=== PATIENT | female | born 1975 | race African-American/Black ===

== ENCOUNTER 2018-09-11 23:30 | Emergency (ER) | payer OTHER ==
[~2018-09-11] VITALS: Ht 167.6 cm; Wt 104.3 kg
[~2018-09-11 23:30] MED LIST: BENZ0.5T32 PO; FESO4TAB PO; LEVO50TA5 PO; LOXA10CA PO; METF500T25 PO; METO5SOL2 PO; OMEP40CA5 PO; RANI150T2 PO; TRAZ-86 PO
[2018-09-12 00:38] LABS: U PREG PATIENT NEGATIVE (NEG)
[2018-09-12 00:54] LABS: BASO # 0.1 x10^3/uL (0.0-0.2); BASO % 1 % (0-3); EOS # 0.2 x10^3/uL (0.0-0.7); EOS % 2 % (0-3); HEMATOCRIT 35.2 % (36.0-47.0); HEMOGLOBIN 11.6 g/dL (12.0-15.5); LYMPH # 3.2 x10^3/uL (1.0-4.8); LYMPH % 30 % (24-48); MEAN CORPUSCULAR HEMOGLOBIN 27 pg (25-35); MEAN CORPUSCULAR HGB CONC 33 g/dL (31-37); MEAN CORPUSCULAR VOLUME 83 fL (79-100); MONO # 0.5 x10^3/uL (0.0-1.1); MONO % 5 % (0-9); NEUT # 6.7 x10^3uL (1.8-7.7); NEUT % 63 % (31-73); PLATELET COUNT 286 x10^3/uL (140-400); RED BLOOD COUNT 4.22 x10^6/uL (3.50-5.40); RED CELL DISTRIBUTION WIDTH 15.4 % (11.5-14.5); WHITE BLOOD COUNT 10.7 x10^3/uL (4.0-11.0)
[2018-09-12] MEDS ORDERED: levETIRAcetam 500 MG TABLET PO ONE (01:00)
[2018-09-12 01:02] LABS: CALCIUM 9.1 mg/dL (8.5-10.1); CREATININE 1.2 mg/dL (0.6-1.0); GFR 59.3; POTASSIUM 3.9 mmol/L (3.5-5.1)
[2018-09-12 01:07] LABS: ALBUMIN 3.2 g/dL (3.4-5.0); ALBUMIN/GLOBULIN RATIO 0.7 (1.0-1.7); TOTAL BILIRUBIN 0.2 mg/dL (0.2-1.0); TOTAL PROTEIN 7.7 g/dL (6.4-8.2)
[2018-09-12 01:22] LABS: BILIRUBIN,URINE NEGATIVE (NEG); CLARITY,URINE CLEAR; COLOR,URINE YELLOW; NITRITE,URINE NEGATIVE (NEG); PROTEIN,URINE NEGATIVE (NEG-TRACE); UROBILINOGEN,URINE 0.2 mg/dL (0.2 mg/dL)
[2018-09-12 01:31] LABS: BACTERIA,URINE FEW /HPF (0-FEW); RBC,URINE OCC /HPF (0-2); SQUAMOUS EPITHELIAL CELL,UR MOD /LPF
[2018-09-12] MEDS ORDERED: LEVE500T56 PO (01:59)
--- NOTE | 2018-09-12 01:59 | PHYS DOC ---
Past Medical History Past Medical History: Unknown Additional Past Medical Histor: mental retardation, borderline personality disorder Past Surgical History: No Surgical History Alcohol Use: None Drug Use: None Adult General Chief Complaint Chief Complaint: SEIZURE HPI HPI Patient is a 43 year old female who presents with seizure activity today. Patient has a history of mental retardation and is at a nursing home and was coming home from playing bingo when the national van truck driver noticed that she was shaking. They assume she was having a seizure. They assisted to the front door where one of the nursing home caregivers noted that her upper extremities specifically the lower arm was shaking a lot, not the total body and it lasts approximately 10 minutes. Patient had a lucid interval minute happening again so they called outside machinist supervisor bring her to the emergency department. Patient is now in no acute distress and in review of her records she does have a history in 2013 of having partial complex seizures and was on an anticonvulsant at that time. There is no record of what the anticonvulsant was and her current list of diagnosis does not include a history of partial complex seizures. Review of Systems Review of Systems Constitutional: Denies fever or chills [] Eyes: Denies change in visual acuity, redness, or eye pain [] HENT: Denies nasal congestion or sore throat [] Respiratory: Denies cough or shortness of breath [] Cardiovascular: No additional information not addressed in HPI [] GI: Denies abdominal pain, nausea, vomiting, bloody stools or diarrhea [] : Denies dysuria or hematuria [] Musculoskeletal: Denies back pain or joint pain [] Integument: Denies rash or skin lesions [] Neurologic: Denies headache, focal weakness or sensory changes [] Endocrine: Denies polyuria or polydipsia [] All other systems were reviewed and found to be within normal limits, except as documented in this note. Current Medications Current Medications Current Medications Medications (Trade) Dose Ordered Sig/Prateek Start Time Stop Time Status Last Admin Dose Admin Levetiracetam (Keppra) 500 mg 1X ONCE 09/12/18 01:00 09/12/18 01:01 DC 09/12/18 00:55 500 MG Allergies Allergies Allergies Coded Allergies Type Severity Reaction Last Updated Verified No Known Drug Allergies 03/16/14 No Physical Exam Physical Exam Constitutional: Well developed, well nourished, no acute distress, non-toxic appearance. [] HENT: Normocephalic, atraumatic, bilateral external ears normal, oropharynx moist, no oral exudates, nose normal. [] Eyes: PERRLA, EOMI, conjunctiva normal, no discharge. [] Neck: Normal range of motion, no tenderness, supple, no stridor. [] Cardiovascular:Heart rate regular rhythm, no murmur [] Lungs & Thorax: Bilateral breath sounds clear to auscultation [] Abdomen: Bowel sounds normal, soft, no tenderness, no masses, no pulsatile masses. [] Skin: Warm, dry, no erythema, no rash. [] Back: No tenderness, no CVA tenderness. [] Extremities: No tenderness, no cyanosis, no clubbing, ROM intact, no edema. [] Neurologic: Alert and oriented X 3, normal motor function, normal sensory function, no focal deficits noted. [] Psychologic: Affect normal, judgement normal, mood normal. [] Current Patient Data Vital Signs Vital Signs Date Time Temp Pulse Resp B/P (MAP) Pulse Ox O2 Delivery O2 Flow Rate FiO2 09/11/18 23:47 98.6 90 20 154/94 (114) 98 Room Air 98.6 Lab Values Laboratory Tests Test 09/12/18 00:01 09/12/18 00:40 Urine Collection Type Unknown Urine Color Yellow Urine Clarity Clear Urine pH 6.0 Urine Specific [place] 1.015 Urine Protein Negative mg/dL (NEG-TRACE) Urine Glucose (UA) 100 mg/dL (NEG) Urine Ketones (Stick) Negative mg/dL (NEG) Urine Blood Negative (NEG) Urine Nitrite Negative (NEG) Urine Bilirubin Negative (NEG) Urine Urobilinogen Dipstick 0.2 mg/dL (0.2 mg/dL) Urine Leukocyte Esterase Trace (NEG) Urine RBC Occ /HPF (0-2) Urine WBC 5-10 /HPF (0-4) Urine Squamous Epithelial Cells Mod /LPF Urine Bacteria Few /HPF (0-FEW) Urine Mucus Slight /LPF Urine Test Negative (NEG) White Blood Count 10.7 x10^3/uL (4.0-11.0) Red Blood Count 4.22 x10^6/uL (3.50-5.40) Hemoglobin 11.6 g/dL (12.0-15.5) L Hematocrit 35.2 % (36.0-47.0) L Mean Corpuscular Volume 83 fL (79-100) Mean Corpuscular Hemoglobin 27 pg (25-35) Mean Corpuscular Hemoglobin Concent 33 g/dL (31-37) Red Cell Distribution Width 15.4 % (11.5-14.5) H Platelet Count 286 x10^3/uL (140-400) Neutrophils (%) (Auto) 63 % (31-73) Lymphocytes (%) (Auto) 30 % (24-48) Monocytes (%) (Auto) 5 % (0-9) Eosinophils (%) (Auto) 2 % (0-3) Basophils (%) (Auto) 1 % (0-3) Neutrophils # (Auto) 6.7 x10^3uL (1.8-7.7) Lymphocytes # (Auto) 3.2 x10^3/uL (1.0-4.8) Monocytes # (Auto) 0.5 x10^3/uL (0.0-1.1) Eosinophils # (Auto) 0.2 x10^3/uL (0.0-0.7) Basophils # (Auto) 0.1 x10^3/uL (0.0-0.2) Sodium Level 138 mmol/L (136-145) Potassium Level 3.9 mmol/L (3.5-5.1) Chloride Level 103 mmol/L (98-107) Carbon Dioxide Level 21 mmol/L (21-32) Anion Gap 14 (6-14) Blood Urea Nitrogen 14 mg/dL (7-20) Creatinine 1.2 mg/dL (0.6-1.0) H Estimated GFR (Cockcroft-Gault) 59.3 BUN/Creatinine Ratio 12 (6-20) Glucose Level 215 mg/dL (70-99) H Calcium Level 9.1 mg/dL (8.5-10.1) Total Bilirubin 0.2 mg/dL (0.2-1.0) Aspartate Amino Transferase (AST) 11 U/L (15-37) L Alanine Aminotransferase (ALT) 18 U/L (14-59) Alkaline Phosphatase 81 U/L (46-116) Total Protein 7.7 g/dL (6.4-8.2) Albumin 3.2 g/dL (3.4-5.0) L Albumin/Globulin Ratio 0.7 (1.0-1.7) L Laboratory Tests 09/12/18 00:40 Laboratory Tests 09/12/18 00:40 EKG EKG [] Radiology/Procedures Radiology/Procedures [] Course & Med Decision Making Course & Med Decision Making Pertinent Labs and Imaging studies reviewed. (See chart for details) Discussed with Dr. Isabel, neurology who recommended starting the patient on Keppra 500 mg by mouth T with neurological follow-up. [] Dragon Disclaimer Dragon Disclaimer This electronic medical record was generated, in whole or in part, using a voice recognition dictation system. Departure Departure Impression: Primary Impression: Complex partial seizure Disposition: HOME, SELF-CARE Condition: STABLE Referrals: REVA ENGLISH (PCP) SAM ISABEL MD Patient Instructions: Seizure, Adult Scripts Levetiracetam (KEPPRA) 500 Mg Tablet 500 MG PO BID for 30 Days, #60 TAB Prov: YUSRA ACEVEDO MD 09/12/18 YUSRA ACEVEDO MD Sep 12, 2018 01:59
[2018-09-12 02:16] VITALS: BP 130/84
== END 2018-09-12 02:17 | disposition home or self-care (01) ==
LOC: ER 23:30
DX: G40.209 Localization-related (focal) (partial) symptomatic epilepsy and epileptic syndromes with complex partial seizures, not intractable, without status epilepticus (principal)
CPT/HCPCS: 36415; 80053; 81001; 81025; 85025; 87086; 99284

== ENCOUNTER → 2019-06-24 | Outpatient (CLI) | payer OTHER ==
[~2019-06-24] MED LIST changes: +LEVE500T56 PO; +LISI-338 PO; +LORA10TA3 PO; +SITA100T PO
--- NOTE | 2019-06-25 14:36 | EEG ---
DATE OF SERVICE: ELECTROENCEPHALOGRAM REPORT EEG NUMBER [id number] performed on 06/24/2019. OBJECTIVE: The patient is a 44-year-old female with a history of seizures. DESCRIPTION: This is a digital study. Electrodes are placed according to international 10-20 system. Bipolar and referential montages are available. Activation procedures typically include hyperventilation and intermittent photic stimulation. INTERPRETATION: The waking background consists of 8-9 Hz, 50-100 microvolt activity, symmetrically distributed over parietooccipital regions and reactive to eye opening. Hyperventilation and intermittent photic stimulation are noncontributory. Stage 2 sleep was achieved with normal electroencephalogram patterns. IMPRESSION: This electroencephalogram with the patient awake and asleep is within normal limits. There is no focal, paroxysmal, or epileptiform activity. Thank you for letting us help with the patient's care. SAM ISABEL MD DR: CHRIS/kanchan JOB#: [id number] / [id number] ALDA Grossman MD
== END | disposition home or self-care (01) ==
LOC: RT 13:42
PROVIDERS: ATTEND Psychiatry & Neurology Neurology
DX: R56.9 Unspecified convulsions (principal); Z86.73 Personal history of transient ischemic attack (TIA), and cerebral infarction without residual deficits
CPT/HCPCS: 36415; 95816

== ENCOUNTER → 2019-07-11 | Outpatient (CLI) | payer OTHER ==
[~2019-07-11] MED LIST changes: +GADOTERATE 5 MMOL/10ML VIAL. IVP ONE
--- NOTE | 2019-07-11 14:53 | KCIC ---
MRI of the Brain without and with Contrast 07/11/2019 Clinical History: Seizures. Right hemiparesis. Technique: Unenhanced T1-weighted sagittal and axial and FLAIR, T2-weighted, gradient echo and diffusion-weighted axial images of the brain were obtained. Thin section FLAIR and T2-weighted coronal images through the temporal lobes were obtained. After the intravenous administration of 18 cc of Dotarem, enhanced T1-weighted axial and coronal images of the brain were obtained. Findings: No previous studies are available for comparison. Atrophy is seen involving both cerebral hemispheres, left greater than right. Areas of encephalomalacia are seen involving both parietal lobes, left greater than right and the left frontal and temporal lobes. Ex vacuo dilatation of the occipital horn of the left lateral ventricle is seen. A 1.8 cm arachnoid cyst is seen anterior to the left temporal lobe. There is no significant mass effect. No acute parenchymal abnormality is noted. No acute extra-axial fluid collection is seen. There is no MRI evidence of acute ischemia/infarction. No area of abnormal contrast enhancement is noted. Images through the temporal lobes are within normal limits. Mild mucosal thickening in seen scattered throughout the paranasal sinuses. There are minimal bilateral mastoid effusions. Normal flow voids are seen within the major vascular structures surrounding the right parenchyma. IMPRESSION: Areas of encephalomalacia are seen involving both parietal lobes, left greater than right and the frontal and temporal lobes. No acute parenchymal abnormality is seen. Electronically signed by: Velasquez Salinas MD (07/11/2019 2:50 PM) [id number]
== END | disposition home or self-care (01) ==
LOC: KCIC MRI 10:51
PROVIDERS: ATTEND Psychiatry & Neurology Neurology with Special Qualifications in Child Neurology
DX: G93.0 Cerebral cysts (principal); G31.89 Other specified degenerative diseases of nervous system; G93.89 Other specified disorders of brain; H74.8X3 Other specified disorders of middle ear and mastoid, bilateral; G81.91 Hemiplegia, unspecified affecting right dominant side; I10 Essential (primary) hypertension; E11.9 Type 2 diabetes mellitus without complications
CPT/HCPCS: 70553; 82565; A9575

== ENCOUNTER → 2020-11-12 | Outpatient (CLI) | payer OTHER ==
[~2020-11-12] MED LIST changes: -GADOTERATE 5 MMOL/10ML VIAL. IVP ONE; +OMEP40CA45 PO; -OMEP40CA5 PO; +TRAZ-123 PO; -TRAZ-86 PO
--- NOTE | 2020-11-12 14:32 | KCIC ---
XR HAND_LEFT 3 VIEWS 11/12/2020 1:18 PM INDICATION: Injury to the left fifth digit. COMPARISON: None available. TECHNIQUE: 4 views left hand are provided. FINDINGS/ IMPRESSION: 1. There is a comminuted fracture involving the base of the proximal phalanx of the fifth digit with intra-articular extension to the metacarpophalangeal joint. There is regional soft tissue swelling. B one mineralization is within normal limits. No subcutaneous gas or osseous erosion. Electronically signed by: Sirena Batres MD (11/12/2020 2:30 PM) [id number]
== END ==
LOC: KCIC 13:10
PROVIDERS: ATTEND Family Medicine
DX: S69.92XA Unspecified injury of left wrist, hand and finger(s), initial encounter (principal); M79.89 Other specified soft tissue disorders; X58.XXXA Exposure to other specified factors, initial encounter; Y93.89 Activity, other specified; Y92.89 Other specified places as the place of occurrence of the external cause; Y99.8 Other external cause status
CPT/HCPCS: 73130

== ENCOUNTER → 2021-03-11 | Outpatient (CLI) | payer OTHER ==
[~2021-03-11] MED LIST changes: -LISI-338 PO; +LISI-517 PO
--- NOTE | 2021-03-11 14:47 | KCIC ---
Bilateral digital screening mammograms with 3-D tomosynthesis: Reason for examination: Routine screening. Baseline exam. Bilateral mammograms in CC and oblique projections were obtained with 2-D imaging and 3-D tomosynthes is imaging on a Siemens Inspiration unit and reviewed on the workstation. Interpretation was made jose j mcgregor the benefit of CAD. The skin and nipples show no abnormalities. No abnormal axillary lymph nodes are seen. The breast par enchyma shows scattered fatty and fibroglandular density. (Breast density: Category B.) There appears to be a small nodular density at approximately the 2:00 B position of the left breast. Recommend fur ther evaluation with ultrasound. There are no other dominant masses, suspicious calcifications or arc hitectural distortion. Impression: Small nodular density in the 2:00 B position of the left breast. Recommend further evaluation with tone hernandez. BI-RAD Category 0: Incomplete. Needs additional imaging evaluation. "Our facility is accredited by the [employer] Mammography Program." This patient's information has been entered into a reminder system for the patient to be notified wit h the results of her examination and a target date for the next mammogram. Electronically signed by: Stephanie Adan MD (03/11/2021 2:45 PM) [email or web address]
== END ==
LOC: KCIC MAMMO 12:18
PROVIDERS: ATTEND Family Medicine
DX: Z12.31 Encounter for screening mammogram for malignant neoplasm of breast (principal); N63.21 Unspecified lump in the left breast, upper outer quadrant
CPT/HCPCS: 77063; 77067

== ENCOUNTER → 2021-04-10 | Outpatient (CLI) | payer OTHER ==
--- NOTE | 2021-04-10 13:57 | KCIC ---
Left breast ultrasound: Reason for examination: Nodular density on screening mammogram. Comparison is made to mammographic exam dated 03/11/2021. Ultrasound examination of the left breast and axilla was performed. There is mild fibrocystic changes and ductal ectasia. No discrete cystic or solid nodules are seen. N o abnormal appearing lymph nodes are seen in the left axilla. IMPRESSION: No suspicious abnormality seen sonographically. Recommend 6 month follow-up with left breast mammogra ms and ultrasound. BI-RADS Category 3: Probably Benign. "Our facility is accredited by the [employer] Mammography Program." This patient's information has been entered into a reminder system for the patient to be notified wit h the results of her examination and a target date for the next mammogram. Electronically signed by: Stephanie Adan MD (04/10/2021 1:55 PM) [email or web address]
== END ==
LOC: KCIC US 13:17
PROVIDERS: ATTEND Family Medicine
DX: R92.8 Other abnormal and inconclusive findings on diagnostic imaging of breast (principal)
CPT/HCPCS: 76641

== ENCOUNTER → 2021-04-17 | Outpatient (CLI) | payer OTHER ==
--- NOTE | 2021-04-17 16:30 | CARD ---
MR#: [id number] Date of Study: 04/17/2021 Ordering Physician: SINDHU CHAMBERS, Referring Physician: Jose BARNES: Tequila Hernandez [facility] APPROVED REPORT EXAM: Two-dimensional and M-mode echocardiogram with Doppler and color Doppler. Other Information Quality : GoodHR: 77bpm Rhythm : NSR INDICATION Diabetic, Tachycardia 2D DIMENSIONS RVDd2.1 (2.9-3.5cm)Left Atrium(2D)2.7 (1.6-4.0cm) IVSd0.7 (0.7-1.1cm)Aortic Root(2D)2.7 (2.0-3.7cm) LVDd3.8 (3.9-5.9cm)LVOT Diameter1.8 (1.8-2.4cm) PWd0.8 (0.7-1.1cm)LVDs2.8 (2.5-4.0cm) FS (%) 27.4 %SV33.2 ml LVEF(%)54.0 (>50%) Aortic Valve AoV Peak Canelo.153.9cm/Lance Peak GR.9.5mmHg LVOT Peak Canelo.87.3cm/sAVA (VMAX)1.45cm2 Mitral Valve MV E Ngpgmnye24.4cm/sMV DECEL [id number] MV A Tmflybmh03.3cm/sE/A Ratio1.1 Pulmonary Valve PV Peak Bzcgmrgs46.7cm/s Tricuspid Valve TR P. Hhqyrffe862vq/sRAP PXBZGNKD4baXl TR Peak Gr.3bbLsHJRR23tnNm Pulmonary Vein S1 Huheekka30.7cm/sD2 Oidaufdp89.5cm/s PVa jugpozhx73tpto LEFT VENTRICLE The left ventricle is normal size. There is normal left ventricular wall thickness. The left ventricu lar systolic function is normal. The ejection fraction is 55%. There is normal LV segmental wall sabine on. The left ventricular diastolic function is normal. No left ventricle thrombus noted on this study . There is no ventricular septal defect visualized. There is no left ventricular aneurysm. There is n o mass noted in the left ventricle. RIGHT VENTRICLE The right ventricle is normal size. There is normal right ventricular wall thickness. The right ventr icular systolic function is normal. ATRIA The left atrium size is normal. The right atrium size is normal. The interatrial septum is intact wit h no evidence for an atrial septal defect or patent foramen ovale as noted on 2-D or Doppler imaging. AORTIC VALVE The aortic valve is normal in structure and function. No aortic regurgitation is present. There is no aortic valvular stenosis. There is no aortic valvular vegetation. MITRAL VALVE The mitral valve is normal in structure and function. There is no mitral valve stenosis. Doppler and Color Flow revealed no mitral valve regurgitation noted. TRICUSPID VALVE The tricuspid valve is normal in structure and function. Doppler and Color Flow revealed trace tricus pid regurgitation. PAP 18 mmHg. There is no tricuspid valve stenosis. GREAT VESSELS The aortic root is normal in size. The ascending aorta is normal in size. The pulmonary artery is nor mal. The IVC is normal in size and collapses >50% with inspiration. PERICARDIAL EFFUSION There is no pleural effusion. There is no evidence of significant pericardial effusion. Critical Notification Critical Value: No <Conclusion> The left ventricular systolic function is normal. The ejection fraction is 55%. There is normal LV segmental wall motion. Trace tricuspid regurgitation. PAP 18 mmHg. There is no evidence of significant pericardial effusion. Signed by : Sindhu Chambers, Electronically Approved : 04/17/2021 16:29:45
== END ==
LOC: ECHO 07:45
PROVIDERS: ATTEND Internal Medicine Cardiovascular Disease
DX: R00.0 Tachycardia, unspecified (principal)
CPT/HCPCS: 93306

== ENCOUNTER → 2021-04-30 | Outpatient (CLI) | payer OTHER ==
--- NOTE | 2021-04-30 11:13 | RAD ---
US DPLX ARTR EXTREM LOWER BILAT 04/30/2021 9:27 AM INDICATION: Peripheral arterial disease COMPARISON: None available. TECHNIQUE: Multiple sonographic images of the right lateral lower extremity arterial system was perf ormed utilizing grayscale, color Doppler and spectral waveform analysis. FINDINGS: Triphasic waveforms identified throughout the bilateral lower extremities. Right lower extremity: Common femoral artery: 131 cm/s Profunda artery: 61 cm/s Superficial femoral artery, proximal: 93 cm/s Superficial femoral artery, mid: 83 cm/s Superficial femoral artery, distal: 99 cm/s Popliteal artery: 44 cm/s Posterior tibial artery: 43-46 cm/s Anterior tibial artery: 57 cm/s Peroneal artery: 35 cm/s Dorsalis pedis artery: 48 cm/s Left lower extremity: Common femoral artery: 111 cm/s Profunda artery: 73 cm/s Superficial femoral artery, proximal: 85 cm/s Superficial femoral artery, mid: 78 cm/s Superficial femoral artery, distal: 68 cm/s Popliteal artery: 63 cm/s Posterior tibial artery: 39-51 cm/s Anterior tibial artery: 50 cm/s Peroneal artery: 34 cm/s Dorsalis pedis artery: 34 cm/s IMPRESSION: No hemodynamically significant stenosis involving the bilateral lower extremity arterial system. Electronically signed by: Sirena Batres MD (04/30/2021 11:11 AM) [id number]
== END ==
LOC: US 10:16
PROVIDERS: ATTEND Internal Medicine Cardiovascular Disease
DX: I73.9 Peripheral vascular disease, unspecified (principal)
CPT/HCPCS: 93925

== ENCOUNTER 2021-07-30 08:44 | Inpatient (IN) | payer OTHER ==
[~2021-07-30] VITALS: Ht 165.1 cm; Wt 90.9 kg
[~2021-07-30 08:44] MED LIST changes: -OMEP40CA45 PO; +OMEP40CA7 PO
[2021-07-30] MEDS ORDERED: methylPREDNISolone SOD SUCC PF 125 MG/2 ML VIAL. IV ONE (09:30)
--- NOTE | 2021-07-30 09:33 | ED.ADGEN ---
Past Medical History Past Medical History: Seizure, Unknown Additional Past Medical Histor: mental retardation, borderline personality disorder Past Surgical History: No Surgical History Smoking Status: Never Smoker Alcohol Use: None Drug Use: None General Adult EDM: Chief Complaint: SEIZURE HPI: HPI: Patient is a 46-year-old female who arrives via EMS after having a witnessed seizure lasting approximately 2 minutes. Patient resides in a residential and has a known seizure disorder. Patient was unresponsive during the time the seizure occurred and upon window installation subcontractor arrival the seizure had resolved. Of note, the patient has been coughing and short of air during this time as well. Several residents of the patient's residence are being treated for Covid. Patient reports she has a sore throat when she coughs and had saturations in the mid 80s upon arrival. She provides no history otherwise. She is awake, alert and resting comfortably at this time. Review of Systems: Review of Systems: Constitutional: Denies fever or chills. [] Eyes: Denies change in visual acuity. [] HENT: Reports sore throat with cough. [] Respiratory: Reports shortness of air with cough. [] Cardiovascular: Denies chest pain or edema. [] GI: Denies abdominal pain, nausea, vomiting, bloody stools or diarrhea. [] : Denies dysuria. [] Musculoskeletal: Denies back pain or joint pain. [] Integument: Denies rash. [] Neurologic: Reports seizure. Denies headache, focal weakness or sensory changes. [] Endocrine: Denies polyuria or polydipsia. [] Lymphatic: Denies swollen glands. [] Psychiatric: Denies depression or anxiety. [] Current Medications: Current Medications Medications (Trade) Dose Ordered Sig/Prateek Start Time Stop Time Status Last Admin Dose Admin Methylprednisolone Sodium Succinate (SOLU-Medrol 125MG VIAL) 125 mg 1X ONCE 07/30/21 09:30 07/30/21 09:33 DC 07/30/21 10:20 125 MG Allergies: Allergies: Allergies Coded Allergies Type Severity Reaction Last Updated Verified No Known Drug Allergies 07/30/21 No Physical Exam: PE: Constitutional: Well developed, well nourished, no acute distress, non-toxic appearance. [] HENT: Normocephalic, atraumatic, bilateral external ears normal, oropharynx moist, no oral exudates, nose normal. [] Eyes: PERRLA, EOMI, conjunctiva normal, no discharge. [] Neck: Normal range of motion, no tenderness, supple, no stridor. [] Cardiovascular:Heart rate regular rhythm, no murmur [] Lungs & Thorax: Diminished breath sounds bilaterally. [] Abdomen: Bowel sounds normal, soft, no tenderness, no masses, no pulsatile masses. [] Skin: Warm, dry, no erythema, no rash. [] Back: No tenderness, no CVA tenderness. [] Extremities: No tenderness, no cyanosis, no clubbing, ROM intact, no edema. [] Neurologic: Alert and oriented X 3, normal motor function, normal sensory function, no focal deficits noted. [] Psychologic: Affect normal, judgement normal, mood normal. [] Current Patient Data: Labs: Laboratory Tests Test 07/30/21 09:04 07/30/21 10:09 White Blood Count 7.1 x10^3/uL (4.0-11.0) Red Blood Count 4.28 x10^6/uL (3.50-5.40) Hemoglobin 11.7 g/dL (12.0-15.5) L Hematocrit 35.4 % (36.0-47.0) L Mean Corpuscular Volume 83 fL (79-100) Mean Corpuscular Hemoglobin 27 pg (25-35) Mean Corpuscular Hemoglobin Concent 33 g/dL (31-37) Red Cell Distribution Width 13.9 % (11.5-14.5) Platelet Count 206 x10^3/uL (140-400) Neutrophils (%) (Auto) 79 % (31-73) H Lymphocytes (%) (Auto) 15 % (24-48) L Monocytes (%) (Auto) 6 % (0-9) Eosinophils (%) (Auto) 0 % (0-3) Basophils (%) (Auto) 0 % (0-3) Neutrophils # (Auto) 5.6 x10^3/uL (1.8-7.7) Lymphocytes # (Auto) 1.1 x10^3/uL (1.0-4.8) Monocytes # (Auto) 0.4 x10^3/uL (0.0-1.1) Eosinophils # (Auto) 0.0 x10^3/uL (0.0-0.7) Basophils # (Auto) 0.0 x10^3/uL (0.0-0.2) Sodium Level 134 mmol/L (136-145) L Potassium Level 4.6 mmol/L (3.5-5.1) Chloride Level 100 mmol/L (98-107) Carbon Dioxide Level 22 mmol/L (21-32) Anion Gap 12 (6-14) Blood Urea Nitrogen 15 mg/dL (7-20) Creatinine 1.3 mg/dL (0.6-1.0) H Estimated GFR (Cockcroft-Gault) 53.4 BUN/Creatinine Ratio 12 (6-20) Glucose Level 190 mg/dL (70-99) H Calcium Level 8.4 mg/dL (8.5-10.1) L Total Bilirubin 0.2 mg/dL (0.2-1.0) Aspartate Amino Transferase (AST) 45 U/L (15-37) H Alanine Aminotransferase (ALT) 48 U/L (14-59) Alkaline Phosphatase 72 U/L (46-116) Troponin I Quantitative < 0.017 ng/mL (0.000-0.055) OL-Xpt-N-Type Natriuretic Peptide 60 pg/mL (0-124) Total Protein 7.1 g/dL (6.4-8.2) Albumin 2.9 g/dL (3.4-5.0) L Albumin/Globulin Ratio 0.7 (1.0-1.7) L POC Urine HCG, Qualitative Hcg negative (Negative) Laboratory Tests 07/30/21 09:04 Laboratory Tests 07/30/21 09:04 Vital Signs: Vital Signs Date Time Temp Pulse Resp B/P (MAP) Pulse Ox O2 Delivery O2 Flow Rate FiO2 07/30/21 09:14 99.1 98 22 121/69 (114) 96 Nasal Cannula 2.0 99.1 EKG: EKG: [] EKG was obtained at 10:21 AM and revealed a normal sinus rhythm with a ventricular rate of 99 bpm. There are no acute ST/T wave changes to denote ischemia. This is an otherwise normal EKG. Heart Score: C/O Chest Pain: No Risk Factors: Risk Factors: DM, Current or recent (<one month) smoker, HTN, HLP, family history of CAD, obesity. Risk Scores: Score 0 - 3: 2.5% MACE over next 6 weeks - Discharge Home Score 4 - 6: 20.3% MACE over next 6 weeks - Admit for Clinical Observation Score 7 - 10: 72.7% MACE over next 6 weeks - Early Invasive Strategies Radiology/Procedures: Radiology/Procedures: [] Impression: [facility] [address] [place] [address] IMAGING REPORT Signed PATIENT: IRISH FARRAR ACCOUNT: [id number] : 1975 LOCATION: ER AGE: 46 SEX: F EXAM STATUS: PRE ER ORD. PHYSICIAN: MARIELLE WHITE DO REASON: SOA/COUGH PROCEDURE: PORTABLE CHEST 1V AP chest. HISTORY: Short of air, cough AP view was taken of the chest. Lungs are clear. Heart is normal in size. There is no effusion. IMPRESSION: 1. No acute infiltrates. Electronically signed by: Gage Tran MD (07/30/2021 9:47 AM) [facility] DICTATED and SIGNED BY: GAGE TRAN MD DATE: 07/30/21 [id number] Course & Med Decision Making: Course & Med Decision Making Pertinent Labs and Imaging studies reviewed. (See chart for details) [] Dragon Disclaimer: Pedro Disclaimer: This electronic medical record was generated, in whole or in part, using a voice recognition dictation system. Departure Departure Impression: Primary Impression: Person under investigation for COVID-19 Additional Impressions: Seizure Hypoxia Disposition: ADMITTED INPATIENT Admitting Physician: ANUJA Condition: STABLE Referrals: ALDA TAVAREZ MD (PCP) Problem Qualifiers MARIELLE WHITE DO Jul 30, 2021 09:33
[2021-07-30 09:41] LABS: BASO % 0 % (0-3); EOS % 0 % (0-3); HEMATOCRIT 35.4 % (36.0-47.0); HEMOGLOBIN 11.7 g/dL (12.0-15.5); LYMPH # 1.1 x10^3/uL (1.0-4.8); LYMPH % 15 % (24-48); MEAN CORPUSCULAR HEMOGLOBIN 27 pg (25-35); MEAN CORPUSCULAR HGB CONC 33 g/dL (31-37); MEAN CORPUSCULAR VOLUME 83 fL (79-100); MONO # 0.4 x10^3/uL (0.0-1.1); MONO % 6 % (0-9); NEUT # 5.6 x10^3/uL (1.8-7.7); NEUT % 79 % (31-73); PLATELET COUNT 206 x10^3/uL (140-400); RED BLOOD COUNT 4.28 x10^6/uL (3.50-5.40); RED CELL DISTRIBUTION WIDTH 13.9 % (11.5-14.5); WHITE BLOOD COUNT 7.1 x10^3/uL (4.0-11.0)
[2021-07-30 09:50] LABS: CALCIUM 8.4 mg/dL (8.5-10.1); CREATININE 1.3 mg/dL (0.6-1.0); GFR 53.4; POTASSIUM 4.6 mmol/L (3.5-5.1)
--- NOTE | 2021-07-30 09:50 | RAD ---
AP chest. HISTORY: Short of air, cough AP view was taken of the chest. Lungs are clear. Heart is normal in size. There is no effusion. IMPRESSION: 1. No acute infiltrates. Electronically signed by: Gage Tran MD (07/30/2021 9:47 AM) [facility]
[2021-07-30 09:56] LABS: ALBUMIN 2.9 g/dL (3.4-5.0); ALBUMIN/GLOBULIN RATIO 0.7 (1.0-1.7); TOTAL BILIRUBIN 0.2 mg/dL (0.2-1.0); TOTAL PROTEIN 7.1 g/dL (6.4-8.2)
[2021-07-30] MEDS ORDERED: ONDANSETRON PF 4 MG/2 ML VIAL. IVP PRN ×2 (10:45→17:00)
[2021-07-30] MEDS ORDERED: ACETAMINOPHEN 325 MG TABLET. PO PRN ×2 (10:45→17:00)
--- NOTE | 2021-07-30 10:46 | EKG ---
[facility] [address] [place] [address] Test Date: 2021-07-30 Test Time: 10:21:56 Pat Name: IRISH FARRAR Department: Room: Gender: F Supervisor [employer]: : 1975 Requested By: MARIELLE WHITE Order Number: [id number] Reading MD: Measurements Intervals [place] Rate: 99 P: 30 NE: 142 QRS: 24 QRSD: 80 T: 21 QT: 346 QTc: 444 Interpretive Statements SINUS RHYTHM NORMAL ECG RI6.02 No previous ECG available for comparison
--- NOTE | 2021-07-30 12:08 | PDOC1 ---
History and Physical Date of Admission Date of Admission DATE: 07/30/21 TIME: 12:06 Identification/Chief Complaint Chief Complaint Seizure, hypoxia Source Source: Caregiver, Chart review, Patient History of Present Illness History of Present Illness Ms Mena is a 46-year-old female w/ PMHX developmental mental delay, MRDD, seizure disorder, psychosis who arrives via EMS after having a witnessed seizure lasting approximately 2 minutes at her senior living. Patient resides in a senior living and has a known seizure disorder. Patient was unresponsive during the time the seizure occurred and upon manager building arrival the seizure had resolved. Of note, the patient has been coughing and short of air during this time as well. Several residents of the patient's residence are being treated for Covid. Patient reports she has a sore throat when she coughs and had saturations in the mid 80s upon arrival. She notes that she has been having diarrhea for at least 6 days as well after a roommate coughed on her. Not vaccinated for COVID 19. WBC 7.1, Hb 11.7, platelets 206, NA 134, K4.6, BUN 15, CR 1.3, glucose 190, bilirubin 0.2, AST 45, ALT 48, alk phos 72, troponin 0, BNP 60, albumin 2.9. Rapid nucleic amplification test positive for COVID-19. Urine negative. Admitted for further care. Past Medical History Cardiovascular: HTN CENTRAL NERVOUS SYSTEM: Seizure Past Surgical History Past Surgical History: No pertinent history Family History Family History: Hypertension Social History Smoke: No ALCOHOL: none Drugs: None Current Problem List Problem List Problems Medical Problems: (1) Hypoxia Status: Acute (2) Person under investigation for COVID-19 Status: Acute (3) Seizure Status: Acute Current Medications Current Medications Current Medications Methylprednisolone Sodium Succinate (SOLU-Medrol 125MG VIAL) 125 mg 1X ONCE IV Last administered on 07/30/21at 10:20; Start 07/30/21 at 09:30; Stop 07/30/21 at 09:33; Status DC Ondansetron HCl (Zofran) 4 mg PRN Q8HRS PRN IVP NAUSEA/VOMITING; Start 07/30/21 at 10:45; Stop 07/31/21 at 10:44 Acetaminophen (Tylenol) 650 mg PRN Q4HRS PRN PO FEVER > 100.3'F; Start 07/30/21 at 10:45; Stop 07/31/21 at 10:44 Active Scripts Active Keppra (Levetiracetam) 500 Mg Tablet 500 Mg PO BID 30 Days Reported Loratadine 10 Mg Tablet 10 Mg PO Januvia (Sitagliptin Phosphate) 100 Mg Tablet 100 Mg PO DAILY Lisinopril 5 Mg Tablet 5 Mg PO DAILY Trazodone Hcl 100 Mg Tablet 100 Mg PO HS Toviaz (Fesoterodine Fumarate) 4 Mg Tab.er.24h 4 Mg PO DAILY Ranitidine Hcl 150 Mg Tablet 150 Mg PO DAILY Omeprazole 40 Mg Capsule.dr 40 Mg PO DAILY Metoclopramide Hcl 5 Mg/5 Ml Solution 5 Mg PO TID Metformin Hcl Er (Metformin Hcl) 500 Mg Tab.er.24 500 Mg PO DAILYBFRSUP Loxapine (Loxapine Succinate) 10 Mg Capsule 10 Mg PO BID Levothyroxine Sodium 50 Mcg Tablet 50 Mcg PO DAILY Benztropine Mesylate 0.5 Mg Tablet 0.5 Mg PO BID Allergies Allergies: Coded Allergies: No Known Drug Allergies (Unverified , 07/30/21) ROS General: YES: Fatigue, Malaise, Appetite; No: Chills, Night Sweats, Other PSYCHOLOGICAL ROS: YES: Anxiety, Behavioral Disorder, Concentration difficultie , Mood Swings, Obsessive thoughts; No: Decreased libido, Depression, Disorientation, Hallucinations, Hostility, Irritablity, Memory difficulties, Physical abuse, Sexual abuse, Sleep disturbances, Suicidal ideation, Other Eyes: No Blurry vision, No Decreased vision, No Double vision, No Dry eyes, No Excessive tearing, No Eye Pain, No Itchy Eyes, No Loss of vision, No Photophobia, No Scotomata, No Uses contacts, No Uses glasses, No Other HEENT: No: Heacaches, Visual Changes, Hearing change, Nasal congestion, Nasal discharge, Oral lesions, Sinus pain, Sore Throat, Epistaxis, Sneezing, Snoring, Tinnitus, Vertigo, Vocal changes, Other ALLERGY AND IMMUNOLOGY: No: Hives, Insect Bite Sensitivity, Itchy/Watery Eyes, Nasal Congestion, Post Nasal Drip, Seasonal Allergies, Other Hematological and Lymphatic: No: Bleeding Problems, Blood Clots, Blood Transfusions, Brusing, Night Sweats, Pallor, Swollen Lymph Nodes, Other ENDOCRINE: No: Breast Changes, Galactorrhea, Hair Pattern Changes, Hot Flashes, Malaise/lethargy, Mood Swings, Palpitations, Polydipsia/polyuria, Skin Changes, Temperature Intolerance, Unexpected Weight Changes, Other Breast: No New/Changing Breast Lumps, No Nipple changes, No Nipple discharge, N o Other Respiratory: YES: Cough, Shortness of breath, SOB with excertion; No: Hemoptysis, Orthopnea, Pleuritic Pain, Sputum Changes, Stridor, Tachypnea, Wheezing, Other Cardiovascular: No Chest Pain, No Palpitations, No Orthopnea, No Paroxysmal Noc. Dyspnea, No Edema, No Lt Headedness, No Other Gastrointestinal: Yes Diarrhea; No Nausea, No Vomiting, No Abdominal Pain, No Constipation, No Melena, No Hematochezia, No Other Genitourinary: No Dysuria, No Frequency, No Incontinence, No Hematuria, No Retention, No Discharge, No Urgency, No Pain, No Flank Pain, No Other, No , No , No , No , No , No , No Musculoskeletal: No Gait Disturbance, No Joint Pain, No Joint Stiffness, No Joint Swelling, No Muscle Pain, No Muscular Weakness, No Pain In:, No Swelling In:, No Other Neurological: Yes Seizures; No Behavorial Changes, No Bowel/Bladder ControlChng, No Confusion, No Dizziness, No Gait Disturbance, No Headaches, No Impaired Coord/balance, No Memory Loss, No Numbness/Tingling, No Speech Problems, No Tremors, No Visual Changes, No Weakness, No Other Skin: No Dry Skin, No Eczema, No Hair Changes, No Lumps, No Mole Changes, No Mottling, No Nail Changes, No Pruritus, No Rash, No Skin Lesion Changes, No Other, No Acne Physical Exam General: Alert, Oriented X3, Cooperative, mild distress HEENT: Atraumatic, PERRLA, EOMI, Mucous membr. moist/pink Lungs: Other (Bibasilar crackles) Heart: S1S2, RRR, no thrills, no rubs, no gallops, no murmurs Abdomen: Normal bowel sounds, Soft, No tenderness, No hepatosplenomegaly, No masses Rectal Exam: not examined Extremities: No clubbing, No cyanosis, No edema, Normal pulses, No tenderness/swelling Skin: No rashes, No breakdown, No significant lesion Neuro: Normal gait, Normal speech, Strength at 5/5 X4 ext, Sensation intact, Cranial nerves 3-12 NL, Reflexes 2+, Other (increased tone) Psych/Mental Status: Other (Depressed mood) Vitals Vitals Vital Signs Date Time Temp Pulse Resp B/P (MAP) Pulse Ox O2 Delivery O2 Flow Rate FiO2 07/30/21 10:37 99 24 97 07/30/21 09:14 99.1 121/69 (114) Nasal Cannula 2.0 99.1 Labs Labs Laboratory Tests Test 07/30/21 09:04 07/30/21 10:09 White Blood Count 7.1 x10^3/uL (4.0-11.0) Red Blood Count 4.28 x10^6/uL (3.50-5.40) Hemoglobin 11.7 g/dL (12.0-15.5) Hematocrit 35.4 % (36.0-47.0) Mean Corpuscular Volume 83 fL (79-100) Mean Corpuscular Hemoglobin 27 pg (25-35) Mean Corpuscular Hemoglobin Concent 33 g/dL (31-37) Red Cell Distribution Width 13.9 % (11.5-14.5) Platelet Count 206 x10^3/uL (140-400) Neutrophils (%) (Auto) 79 % (31-73) Lymphocytes (%) (Auto) 15 % (24-48) Monocytes (%) (Auto) 6 % (0-9) Eosinophils (%) (Auto) 0 % (0-3) Basophils (%) (Auto) 0 % (0-3) Neutrophils # (Auto) 5.6 x10^3/uL (1.8-7.7) Lymphocytes # (Auto) 1.1 x10^3/uL (1.0-4.8) Monocytes # (Auto) 0.4 x10^3/uL (0.0-1.1) Eosinophils # (Auto) 0.0 x10^3/uL (0.0-0.7) Basophils # (Auto) 0.0 x10^3/uL (0.0-0.2) Sodium Level 134 mmol/L (136-145) Potassium Level 4.6 mmol/L (3.5-5.1) Chloride Level 100 mmol/L (98-107) Carbon Dioxide Level 22 mmol/L (21-32) Anion Gap 12 (6-14) Blood Urea Nitrogen 15 mg/dL (7-20) Creatinine 1.3 mg/dL (0.6-1.0) Estimated GFR (Cockcroft-Gault) 53.4 BUN/Creatinine Ratio 12 (6-20) Glucose Level 190 mg/dL (70-99) Calcium Level 8.4 mg/dL (8.5-10.1) Total Bilirubin 0.2 mg/dL (0.2-1.0) Aspartate Amino Transf (AST/SGOT) 45 U/L (15-37) Alanine Aminotransferase (ALT/SGPT) 48 U/L (14-59) Alkaline Phosphatase 72 U/L (46-116) Troponin I Quantitative < 0.017 ng/mL (0.000-0.055) YB-Zqe-[id number]-Type Natriuretic Peptide 60 pg/mL (0-124) Total Protein 7.1 g/dL (6.4-8.2) Albumin 2.9 g/dL (3.4-5.0) Albumin/Globulin Ratio 0.7 (1.0-1.7) Bedside Urine HCG, Qualitative Hcg negative (Negative) Laboratory Tests Test 07/30/21 09:04 07/30/21 10:09 White Blood Count 7.1 x10^3/uL (4.0-11.0) Red Blood Count 4.28 x10^6/uL (3.50-5.40) Hemoglobin 11.7 g/dL (12.0-15.5) Hematocrit 35.4 % (36.0-47.0) Mean Corpuscular Volume 83 fL (79-100) Mean Corpuscular Hemoglobin 27 pg (25-35) Mean Corpuscular Hemoglobin Concent 33 g/dL (31-37) Red Cell Distribution Width 13.9 % (11.5-14.5) Platelet Count 206 x10^3/uL (140-400) Neutrophils (%) (Auto) 79 % (31-73) Lymphocytes (%) (Auto) 15 % (24-48) Monocytes (%) (Auto) 6 % (0-9) Eosinophils (%) (Auto) 0 % (0-3) Basophils (%) (Auto) 0 % (0-3) Neutrophils # (Auto) 5.6 x10^3/uL (1.8-7.7) Lymphocytes # (Auto) 1.1 x10^3/uL (1.0-4.8) Monocytes # (Auto) 0.4 x10^3/uL (0.0-1.1) Eosinophils # (Auto) 0.0 x10^3/uL (0.0-0.7) Basophils # (Auto) 0.0 x10^3/uL (0.0-0.2) Sodium Level 134 mmol/L (136-145) Potassium Level 4.6 mmol/L (3.5-5.1) Chloride Level 100 mmol/L (98-107) Carbon Dioxide Level 22 mmol/L (21-32) Anion Gap 12 (6-14) Blood Urea Nitrogen 15 mg/dL (7-20) Creatinine 1.3 mg/dL (0.6-1.0) Estimated GFR (Cockcroft-Gault) 53.4 BUN/Creatinine Ratio 12 (6-20) Glucose Level 190 mg/dL (70-99) Calcium Level 8.4 mg/dL (8.5-10.1) Total Bilirubin 0.2 mg/dL (0.2-1.0) Aspartate Amino Transf (AST/SGOT) 45 U/L (15-37) Alanine Aminotransferase (ALT/SGPT) 48 U/L (14-59) Alkaline Phosphatase 72 U/L (46-116) Troponin I Quantitative < 0.017 ng/mL (0.000-0.055) IQ-Ldj-R-Type Natriuretic Peptide 60 pg/mL (0-124) Total Protein 7.1 g/dL (6.4-8.2) Albumin 2.9 g/dL (3.4-5.0) Albumin/Globulin Ratio 0.7 (1.0-1.7) Bedside Urine HCG, Qualitative Hcg negative (Negative) Images Images Chest radiograph: AP view was taken of the chest. Lungs are clear. Heart is normal in size. There is no effusion. IMPRESSION: 1. No acute infiltrates. VTE Prophylaxis Ordered VTE Prophylaxis Devices: No VTE Pharmacological Prophylaxi: Yes Assessment/Plan Assessment/Plan A/P: Breakthrough seizure - on keppra. Also on loxapine which effectively manages mood but may lower seizure threshold. Will cont home meds. Will consult neurology for recs. Acute respiratory failure with hypoxia -initially thought to be related to seizure though she did not recover. Once COVID-19 test returned positive to clearance likely Covid related. COVID 19 - Steroids and remdesivir ordered as well as supportive care CARLEY - likely vasomotor nephropathy from diarrhea likely related to covid 19. Will monitor renal function Transaminitis - likely related to COVID 19, will monitor Anemia - possibly related to meds, will check iron studies Diarrhea - likely covid 19 related, no recent antibiotic exposure Hyperglycemia - will covid with basal bolus plus insulin, check A1c Moderate protein calorie malnutrition - likely related to COVID 19 Developmental mental delay, MRDD with psychosis - will hold loxapine with seizure and CARLEY, can given prn zyprexa FEN - Regular diet PPX - lovenox FULL CODE Dispo - inpatient Justifications for Admission Other Justification IRVIN RIBEIRO MD Jul 30, 2021 12:08
[2021-07-30] MEDS ORDERED: IV NORMAL SALINE 1000ML BAG 1,000 ML IV ONE (12:15)
[2021-07-30] MEDS ORDERED: DEXTROSE 50% 25 GM / 50ML DISP.SYRIN. IV PRN (12:15)
[2021-07-30] MEDS ORDERED: LOPERAMIDE 2 MG CAPSULE PO PRN (12:15)
[2021-07-30 15:00] VITALS: BP 127/78
[2021-07-30] MEDS ORDERED: REMDESIVIR LOAD in IV NORMAL SALINE 250ML TV IV ONE (18:00)
[2021-07-30] MEDS: ENOXAPARIN 40 MG/0.4 ML SYRINGE. SQ SCH (18:27)
[2021-07-30] MEDS: INSULIN LISPRO 300 UNITS/3 ML VIAL. SQ SCH (18:32)
[2021-07-30] MEDS ORDERED: POLYETHYLENE GLYCOL 3350 17 GM PACKET. PO PRN (20:00)
[2021-07-30] MEDS ORDERED: diphenhydrAMINE HCL 25 MG CAPSULE PO PRN (20:00)
[2021-07-30] MEDS ORDERED: BENZOCAINE/MENTHOL LOZENGE. PO PRN (20:00)
[2021-07-30] MEDS ORDERED: IBUPROFEN 400 MG TABLET. PO PRN (20:00)
[2021-07-30] MEDS ORDERED: SIMETHICONE 80 MG TAB.CHEW PO PRN (20:00)
[2021-07-30] MEDS: levETIRAcetam 500 MG TABLET PO SCH (21:25)
[2021-07-30] MEDS: traZODone 100 MG TABLET. PO SCH (21:25)
[2021-07-30] MEDS: PRAZOSIN 1 MG CAPSULE. PO SCH (21:27)
[2021-07-30] MEDS: metFORMIN XR 500 MG TAB.ER.24H PO SCH (21:27)
[2021-07-30 23:00] VITALS: BP 153/97
[2021-07-31] VITALS (7 sets, daily range): BP systolic 99–124; BP diastolic 67–81
[2021-07-31] MEDS: PANTOPRAZOLE 40 MG TABLET.DR. PO SCH (05:51)
[2021-07-31] MEDS: LEVOTHYROXINE 50 MCG TABLET PO SCH (05:51)
[2021-07-31] MEDS ORDERED: PANTOPRAZOLE 40 MG TABLET.DR. PO SCH (07:30)
--- NOTE | 2021-07-31 07:51 | PDOC ---
[employer]GRESS NOTE Date of Service DOS: DATE: 07/31/21 TIME: 07:45 Chief Complaint Chief Complaint Breakthrough seizure - on keppra. Also on loxapine which effectively manages mood but may lower seizure threshold. Will cont home meds. Will consult neurology for recs. Acute respiratory failure with hypoxia -initially thought to be related to seizure though she did not recover. Once COVID-19 test returned positive to clearance likely Covid related. COVID 19 - Steroids and remdesivir ordered as well as supportive care CARLEY - likely vasomotor nephropathy from diarrhea likely related to covid 19. Will monitor renal function Transaminitis - likely related to COVID 19, will monitor Anemia - possibly related to meds, will check iron studies Diarrhea - likely covid 19 related, no recent antibiotic exposure Hyperglycemia - will covid with basal bolus plus insulin, check A1c Moderate protein calorie malnutrition - likely related to COVID 19 Developmental mental delay, MRDD with psychosis - will hold loxapine with seizure and CARLEY, can given prn zyprexa History of Present Illness History of Present Illness Ms Mena is a 46-year-old female w/ PMHX developmental mental delay, MRDD, seizure disorder, psychosis who arrives via EMS after having a witnessed seizure lasting approximately 2 minutes at her correction. Patient resides in a correction and has a known seizure disorder. Patient was unresponsive during the time the seizure occurred and upon fountain operator arrival the seizure had resolved. Of note, the patient has been coughing and short of air during this time as well. Several residents of the patient's residence are being treated for Covid. Patient reports she has a sore throat when she coughs and had saturations in the mid 80s upon arrival. She notes that she has been having diarrhea for at least 6 days as well after a roommate coughed on her. Not vaccinated for COVID 19. WBC 7.1, Hb 11.7, platelets 206, NA 134, K4.6, BUN 15, CR 1.3, glucose 190, bilirubin 0.2, AST 45, ALT 48, alk phos 72, troponin 0, BNP 60, albumin 2.9. Rapid nucleic amplification test positive for COVID-19. Urine negative. 07/31/2021: Afebrile, currently breathing on 2 L nasal cannula. COVID-19 positive. We will continue treatment with remdesivir, steroids, and prophylactic antibiotics. Continue to monitor daily LFTs. Appreciate neurology recommendations in the care of this patient. Vitals/I&O Vitals/I&O: Vital Signs Date Time Temp Pulse Resp B/P (MAP) Pulse Ox O2 Delivery O2 Flow Rate FiO2 07/31/21 03:53 97.7 84 18 112/72 (85) 96 Nasal Cannula 2.0 97.7 I & O 07/30/21 07/30/21 07/31/21 15:00 23:00 07:00 Intake Total 300 ml Balance 300 ml Physical Exam General: Alert, Oriented X3, Cooperative, mild distress Heart: Regular rate Lungs: Other (No increased work of breathing on 2L nasal cannula) Abdomen: Normal bowel sounds, Soft, No tenderness, No hepatosplenomegaly, No masses Extremities: No clubbing, No cyanosis, No edema, Normal pulses, No tenderness/swelling Skin: No rashes, No breakdown, No significant lesion Labs Labs: Laboratory Tests Test 07/30/21 09:00 07/30/21 09:04 07/30/21 10:09 07/30/21 17:03 SARS-CoV-2 RNA (AKIL) Positive (Negative) White Blood Count 7.1 x10^3/uL (4.0-11.0) Red Blood Count 4.28 x10^6/uL (3.50-5.40) Hemoglobin 11.7 g/dL (12.0-15.5) Hematocrit 35.4 % (36.0-47.0) Mean Corpuscular Volume 83 fL (79-100) Mean Corpuscular Hemoglobin 27 pg (25-35) Mean Corpuscular Hemoglobin Concent 33 g/dL (31-37) Red Cell Distribution Width 13.9 % (11.5-14.5) Platelet Count 206 x10^3/uL (140-400) Neutrophils (%) (Auto) 79 % (31-73) Lymphocytes (%) (Auto) 15 % (24-48) Monocytes (%) (Auto) 6 % (0-9) Eosinophils (%) (Auto) 0 % (0-3) Basophils (%) (Auto) 0 % (0-3) Neutrophils # (Auto) 5.6 x10^3/uL (1.8-7.7) Lymphocytes # (Auto) 1.1 x10^3/uL (1.0-4.8) Monocytes # (Auto) 0.4 x10^3/uL (0.0-1.1) Eosinophils # (Auto) 0.0 x10^3/uL (0.0-0.7) Basophils # (Auto) 0.0 x10^3/uL (0.0-0.2) Sodium Level 134 mmol/L (136-145) Potassium Level 4.6 mmol/L (3.5-5.1) Chloride Level 100 mmol/L (98-107) Carbon Dioxide Level 22 mmol/L (21-32) Anion Gap 12 (6-14) Blood Urea Nitrogen 15 mg/dL (7-20) Creatinine 1.3 mg/dL (0.6-1.0) Estimated GFR (Cockcroft-Gault) 53.4 BUN/Creatinine Ratio 12 (6-20) Glucose Level 190 mg/dL (70-99) Calcium Level 8.4 mg/dL (8.5-10.1) Total Bilirubin 0.2 mg/dL (0.2-1.0) Aspartate Amino Transf (AST/SGOT) 45 U/L (15-37) Alanine Aminotransferase (ALT/SGPT) 48 U/L (14-59) Alkaline Phosphatase 72 U/L (46-116) Troponin I Quantitative < 0.017 ng/mL (0.000-0.055) OV-Ihy-Z-Type Natriuretic Peptide 60 pg/mL (0-124) Total Protein 7.1 g/dL (6.4-8.2) Albumin 2.9 g/dL (3.4-5.0) Albumin/Globulin Ratio 0.7 (1.0-1.7) Bedside Urine HCG, Qualitative Hcg negative (Negative) Glucose (Fingerstick) 279 mg/dL (70-99) Test 07/30/21 21:35 07/31/21 07:30 Glucose (Fingerstick) 274 mg/dL (70-99) 152 mg/dL (70-99) Assessment and Plan Assessmemt and Plan Problems Medical Problems: (1) Hypoxia Status: Acute (2) Person under investigation for COVID-19 Status: Acute (3) Seizure Status: Acute Comment Review of Relevant I have reviewed the following items denice (where applicable) has been applied. Medications: Current Medications Medications (Trade) Dose Ordered Sig/Prateek Route PRN Reason Start Time Stop Time Status Last Admin Dose Admin Methylprednisolone Sodium Succinate (SOLU-Medrol 125MG VIAL) 125 mg 1X ONCE IV 07/30/21 09:30 07/30/21 09:33 DC 07/30/21 10:20 Acetaminophen (Tylenol) 650 mg PRN Q4HRS PRN PO FEVER > 100.3'F 07/30/21 10:45 07/30/21 17:03 DC 07/30/21 16:28 Insulin Human Lispro (HumaLOG) 0-7 UNITS TIDWMEALS SQ 07/30/21 17:00 07/30/21 18:32 Sodium Chloride 1,000 ml @ 125 mls/hr 1X ONCE IV 07/30/21 12:15 07/30/21 20:14 DC 07/30/21 12:15 Remdesivir 200 mg/ Sodium Chloride 210 ml @ 210 mls/hr 1X ONCE IV 07/30/21 18:00 07/30/21 18:59 DC 07/30/21 18:25 Olanzapine (ZyPREXA ZYDIS) 5 mg PRN BID PRN PO ANXIETY / AGITATION 07/30/21 17:00 07/30/21 21:25 Enoxaparin Sodium (Lovenox 40mg Syringe) 40 mg Q24H SQ 07/30/21 17:00 07/30/21 18:27 Levetiracetam (Keppra) 500 mg BID PO 07/30/21 21:00 07/30/21 21:25 Levothyroxine Sodium (Synthroid) 50 mcg DAILY07 PO 07/31/21 07:00 07/31/21 05:51 Trazodone HCl (Desyrel) 100 mg HS PO 07/30/21 21:00 07/30/21 21:25 Pantoprazole Sodium (Protonix) 40 mg DAILYAC PO 07/31/21 07:30 07/31/21 05:51 Metformin HCl (Glucophage Xr) 1,000 mg QEVNG PO 07/30/21 21:00 07/30/21 21:27 Prazosin HCl (Minipress) 2 mg HS PO 07/30/21 21:00 07/30/21 21:27 Justifications for Admission Other Justification ADRIAN HUMPHREY MD Jul 31, 2021 07:51
[2021-07-31] MEDS: INSULIN LISPRO 300 UNITS/3 ML VIAL. SQ SCH ×3 (08:00→17:21)
[2021-07-31] MEDS: ASCORBIC ACID 500 MG TABLET PO SCH (09:08)
[2021-07-31] MEDS: DEXAMETHASONE SOD PHOS 4 MG/ML VIAL IVP SCH (09:08)
[2021-07-31] MEDS: ZINC SULFATE 220 MG CAPSULE. PO SCH (09:08)
[2021-07-31] MEDS: guaiFENesin DM 200MG/20MG 10 ML SYRUP PO PRN ×2 (09:08→17:16)
[2021-07-31] MEDS: THIAMINE 100 MG TABLET. PO SCH (09:08)
[2021-07-31] MEDS: METOCLOPRAMIDE 10 MG TABLET. PO SCH ×2 (09:08→17:17)
[2021-07-31] MEDS: METOPROLOL SUCC 24HR ER 25 MG TAB.ER.24H. PO SCH (09:09)
[2021-07-31] MEDS: LINAGLIPTIN 5 MG TABLET PO SCH (09:09)
[2021-07-31] MEDS: levETIRAcetam 500 MG TABLET PO SCH ×2 (09:10→20:44)
--- NOTE | 2021-07-31 09:25 | PDOC2 ---
NEUROLOGY CONSULT Date of Service DOS: DATE: 07/31/21 TIME: 09:18 Reason for Consult Reason for Consult: Seizure Referring Physician Referring Physician: Dr. Garcia Source Source: Chart review, Patient History of Present Illness History of Present Illness The patient is a 46-year-old female who had a seizure yesterday at her group ome and was found to be hypoxic and Covid positive in the emergency department. 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 She averages less than 1 seizure a month. 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 EEG was normal, 06/24/2019, MRI on 07/11/2019 showed encephalomalacia of both parietal lobes, worse on the left, and left frontal and temporal lobe encephalomalacia. She has no complaints this morning. Past Medical History Pulmonary: Asthma CENTRAL NERVOUS SYSTEM: Dementia, Seizure, Other (Insomnia) GI: GERD Psych: Anxiety, Bipolar, Schizophrenia Endocrine: Diabetes, Hypothyroidism Past Surgical History Past Surgical History: Cholecystectomy Family History Family History: No pertinent hx Social History Social History Lives in a fci, no alcohol or tobacco Current Medications Current Medications Current Medications Methylprednisolone Sodium Succinate (SOLU-Medrol 125MG VIAL) 125 mg 1X ONCE IV Last administered on 07/30/21at 10:20; Start 07/30/21 at 09:30; Stop 07/30/21 at 09:33; Status DC Ondansetron HCl (Zofran) 4 mg PRN Q8HRS PRN IVP NAUSEA/VOMITING; Start 07/30/21 at 10:45; Stop 07/30/21 at 17:03; Status DC Acetaminophen (Tylenol) 650 mg PRN Q4HRS PRN PO FEVER > 100.3'F Last administered on 07/30/21at 16:28; Start 07/30/21 at 10:45; Stop 07/30/21 at 17:03; Status DC Insulin Human Lispro (HumaLOG) 0-7 UNITS TIDWMEALS SQ Last administered on 07/30/21at 18:32; Start 07/30/21 at 17:00 Dextrose (Dextrose 50%-Water Syringe) 12.5 gm PRN Q15MIN PRN IV SEE COMMENTS; Start 07/30/21 at 12:15 Loperamide HCl (Imodium) 2 mg PRN Q15MIN PRN PO DIARRHEA; Start 07/30/21 at 12:15 Guaifenesin (Robitussin Dm) 10 ml PRN Q6HRS PRN PO COUGH Last administered on 07/31/21at 09:08; Start 07/30/21 at 12:15 Sodium Chloride 1,000 ml @ 125 mls/hr 1X ONCE IV Last administered on 07/30/21at 12:15; Start 07/30/21 at 12:15; Stop 07/30/21 at 20:14; Status DC Remdesivir 200 mg/ Sodium Chloride 210 ml @ 210 mls/hr 1X ONCE IV Last adm inistered on 07/30/21at 18:25; Start 07/30/21 at 18:00; Stop 07/30/21 at 18:59; Status DC Remdesivir 100 mg/ Sodium Chloride 230 ml @ 460 mls/hr Q24H IV ; Start 07/31/21 at 18:00; Stop 08/03/21 at 18:29 Ondansetron HCl (Zofran) 4 mg PRN Q4HRS PRN IVP NAUSEA/VOMITING; Start 07/30/21 at 17:00 Acetaminophen (Tylenol) 650 mg PRN Q6HRS PRN PO FEVER > 100.3'F Last administered on 07/31/21at 09:09; Start 07/30/21 at 17:00 Olanzapine (ZyPREXA ZYDIS) 5 mg PRN BID PRN PO ANXIETY / AGITATION Last administered on 07/30/21at 21:25; Start 07/30/21 at 17:00 Zinc Sulfate (Orazinc) 220 mg DAILY PO Last administered on 07/31/21at 09:08; Start 07/31/21 at 09:00 Thiamine Mononitrate (Vitamin B-1) 100 mg DAILY PO Last administered on 07/31/21at 09:08; Start 07/31/21 at 09:00 Ascorbic Acid (Vitamin C) 500 mg DAILY PO Last administered on 07/31/21at 09:08; Start 07/31/21 at 09:00 Dexamethasone Sodium Phosphate (Decadron) 6 mg DAILY IVP Last administered on 07/31/21at 09:08; Start 07/31/21 at 09:00 Enoxaparin Sodium (Lovenox 40mg Syringe) 40 mg Q24H SQ Last administered on 07/30/21at 18:27; Start 07/30/21 at 17:00 Levetiracetam (Keppra) 500 mg BID PO Last administered on 07/31/21at 09:10; Start 07/30/21 at 21:00 Levothyroxine Sodium (Synthroid) 50 mcg DAILY07 PO Last administered on 07/31/21at 05:51; Start 07/31/21 at 07:00 Trazodone HCl (Desyrel) 100 mg HS PO Last administered on 07/30/21at 21:25; Start 07/30/21 at 21:00 Pantoprazole Sodium (Protonix) 40 mg DAILYAC PO Last administered on 07/31/21at 05:51; Start 07/31/21 at 07:30 Linagliptin (Tradjenta) 5 mg DAILY PO Last administered on 07/31/21at 09:09; Start 07/31/21 at 09:00 Acetaminophen (Tylenol) 1,000 mg PRN TID PRN PO HEADACHE; Start 07/30/21 at 20:15 Throat Lozenges (Cepacol Sore Throat Lozenge) 1 jesi PRN Q2HRS PRN PO SORE THROAT; Start 07/30/21 at 20:00 Diphenhydramine HCl (Benadryl) 25 mg PRN Q6HRS PRN PO ITCHING; Start 07/30/21 at 20:00 Ibuprofen (Motrin) 400 mg PRN Q6HRS PRN PO INFLAMMATION; Start 07/30/21 at 20:00 Simethicone (Gas-X) 80 mg PRN QID PRN PO GAS / BLOATING; Start 07/30/21 at 20:00 Metformin HCl (Glucophage Xr) 1,000 mg QEVNG PO Last administered on 07/30/21at 21:27; Start 07/30/21 at 21:00 Metoclopramide HCl (Reglan) 10 mg BIDAC PO Last administered on 07/31/21at 09:08; Start 07/31/21 at 07:30 Metoprolol Succinate (Toprol Xl) 25 mg DAILY PO Last administered on 07/31/21at 09:09; Start 07/31/21 at 09:00 Pantoprazole Sodium (Protonix) 40 mg DAILYAC PO ; Start 07/31/21 at 07:30; Stop 07/30/21 at 20:11; Status DC Polyethylene Glycol (miraLAX PACKET) 17 gm PRN DAILY PRN PO CONSTIPATION; Start 07/30/21 at 20:00 Prazosin HCl (Minipress) 2 mg HS PO Last administered on 07/30/21at 21:27; Start 07/30/21 at 21:00 Active Scripts Active Keppra (Levetiracetam) 500 Mg Tablet 500 Mg PO BID 30 Days Reported Loratadine 10 Mg Tablet 10 Mg PO Januvia (Sitagliptin Phosphate) 100 Mg Tablet 100 Mg PO DAILY Lisinopril 5 Mg Tablet 5 Mg PO DAILY Trazodone Hcl 100 Mg Tablet 100 Mg PO HS Toviaz (Fesoterodine Fumarate) 4 Mg Tab.er.24h 4 Mg PO DAILY Ranitidine Hcl 150 Mg Tablet 150 Mg PO DAILY Omeprazole 40 Mg Capsule.dr 40 Mg PO DAILY Metoclopramide Hcl 5 Mg/5 Ml Solution 5 Mg PO TID Metformin Hcl Er (Metformin Hcl) 500 Mg Tab.er.24 500 Mg PO DAILYBFRSUP Loxapine (Loxapine Succinate) 10 Mg Capsule 10 Mg PO BID Levothyroxine Sodium 50 Mcg Tablet 50 Mcg PO DAILY Benztropine Mesylate 0.5 Mg Tablet 0.5 Mg PO BID Allergies Allergies: Coded Allergies: No Known Drug Allergies (Unverified , 07/30/21) ROS Review of System Negative for fever, chills, weight loss, shortness of breath, chest pain, indigestion, hematochezia, melena, and dysuria. Full 14-point review of systems is negative. Physical Exam Physical Examination General: Well-developed, well-nourished black female in no acute distress HEENT: Normocephalic andatraumatic. Temporal arteriespulsatile and nontender. Neck: Supple without bruit, no meningismus Musculoskeletal: Stability:see neurologic. Gait exam:see neurologic. Tone:see neurologic.Strength:see neurologic. Neurological: Mental Status: orientation, memory, attention span/concentration, language, fund of knowledge: Does not know date or location, consistent with intellectual disability. Cranial Nerves:Pupils equal and reactive to light, extraocular movements areintact, visual mariee are full to confrontation. Facial sensation is normal. There is no facial asymmetry. Vestibulo-ocular reflex is intact. Palate elevates and tongue protrudes in midline. All other cranial related problems are negative except as mentioned before.Reflexes:2+ and symmetric with flexor plantar responses. Motor:4/5 spastic right hemiparesis. Coordination:Finger-nose finger and grnw-fg-[id number] testing are normal. Rapid alternating movements and fine finger movements are intact. Gait:Not tested. Sensory:Stocking loss. Vitals VITALS Vital Signs Date Time Temp Pulse Resp B/P (MAP) Pulse Ox O2 Delivery O2 Flow Rate FiO2 07/31/21 09:09 114 123/74 07/31/21 07:00 98.7 20 94 Nasal Cannula 2.0 98.7 Labs Labs Laboratory Tests Test 07/30/21 09:00 07/30/21 09:04 07/30/21 10:09 07/30/21 17:03 SARS-CoV-2 RNA (AKIL) Positive (Negative) White Blood Count 7.1 x10^3/uL (4.0-11.0) Red Blood Count 4.28 x10^6/uL (3.50-5.40) Hemoglobin 11.7 g/dL (12.0-15.5) Hematocrit 35.4 % (36.0-47.0) Mean Corpuscular Volume 83 fL (79-100) Mean Corpuscular Hemoglobin 27 pg (25-35) Mean Corpuscular Hemoglobin Concent 33 g/dL (31-37) Red Cell Distribution Width 13.9 % (11.5-14.5) Platelet Count 206 x10^3/uL (140-400) Neutrophils (%) (Auto) 79 % (31-73) Lymphocytes (%) (Auto) 15 % (24-48) Monocytes (%) (Auto) 6 % (0-9) Eosinophils (%) (Auto) 0 % (0-3) Basophils (%) (Auto) 0 % (0-3) Neutrophils # (Auto) 5.6 x10^3/uL (1.8-7.7) Lymphocytes # (Auto) 1.1 x10^3/uL (1.0-4.8) Monocytes # (Auto) 0.4 x10^3/uL (0.0-1.1) Eosinophils # (Auto) 0.0 x10^3/uL (0.0-0.7) Basophils # (Auto) 0.0 x10^3/uL (0.0-0.2) Sodium Level 134 mmol/L (136-145) Potassium Level 4.6 mmol/L (3.5-5.1) Chloride Level 100 mmol/L (98-107) Carbon Dioxide Level 22 mmol/L (21-32) Anion Gap 12 (6-14) Blood Urea Nitrogen 15 mg/dL (7-20) Creatinine 1.3 mg/dL (0.6-1.0) Estimated GFR (Cockcroft-Gault) 53.4 BUN/Creatinine Ratio 12 (6-20) Glucose Level 190 mg/dL (70-99) Calcium Level 8.4 mg/dL (8.5-10.1) Total Bilirubin 0.2 mg/dL (0.2-1.0) Aspartate Amino Transf (AST/SGOT) 45 U/L (15-37) Alanine Aminotransferase (ALT/SGPT) 48 U/L (14-59) Alkaline Phosphatase 72 U/L (46-116) Troponin I Quantitative < 0.017 ng/mL (0.000-0.055) MH-Izr-C-Type Natriuretic Peptide 60 pg/mL (0-124) Total Protein 7.1 g/dL (6.4-8.2) Albumin 2.9 g/dL (3.4-5.0) Albumin/Globulin Ratio 0.7 (1.0-1.7) Bedside Urine HCG, Qualitative Hcg negative (Negative) Glucose (Fingerstick) 279 mg/dL (70-99) Test 07/30/21 21:35 07/31/21 07:30 Glucose (Fingerstick) 274 mg/dL (70-99) 152 mg/dL (70-99) Laboratory Tests Test 07/30/21 10:09 07/30/21 17:03 07/30/21 21:35 07/31/21 07:30 Bedside Urine HCG, Qualitative Hcg negative (Negative) Glucose (Fingerstick) 279 mg/dL (70-99) 274 mg/dL (70-99) 152 mg/dL (70-99) Assessment/Plan Assessment/Plan Impression: Epilepsy, breakthrough seizure possibly related to hypoxia from Covid or just nonspecific infection effects. Cerebral palsy picture with right hemiparesis and intellectual disability. Covid positive, hypoxic Diabetes, hypothyroidism, hypertension, hyperlipidemia Recommendations: Continue levetiracetam 500 mg twice daily Treat Covid and other medical issues Thank you for letting me help with the patient's care. SAM ISABEL MD Jul 31, 2021 09:25
[2021-07-31 11:37] LABS: BASO % 0 % (0-3); EOS % 0 % (0-3); HEMATOCRIT 35.8 % (36.0-47.0); HEMOGLOBIN 11.8 g/dL (12.0-15.5); LYMPH # 0.7 x10^3/uL (1.0-4.8); LYMPH % 6 % (24-48); MEAN CORPUSCULAR HEMOGLOBIN 27 pg (25-35); MEAN CORPUSCULAR HGB CONC 33 g/dL (31-37); MEAN CORPUSCULAR VOLUME 83 fL (79-100); MONO # 0.5 x10^3/uL (0.0-1.1); MONO % 4 % (0-9); NEUT # 10.2 x10^3/uL (1.8-7.7); NEUT % 89 % (31-73); PLATELET COUNT 203 x10^3/uL (140-400); RED BLOOD COUNT 4.32 x10^6/uL (3.50-5.40); RED CELL DISTRIBUTION WIDTH 13.7 % (11.5-14.5); WHITE BLOOD COUNT 11.4 x10^3/uL (4.0-11.0)
[2021-07-31 12:15] LABS: ALBUMIN 2.6 g/dL (3.4-5.0); CALCIUM 8.5 mg/dL (8.5-10.1); CREATININE 1.4 mg/dL (0.6-1.0); DIRECT BILIRUBIN 0.1 mg/dL (0.0-0.2); POTASSIUM 4.5 mmol/L (3.5-5.1); TOTAL BILIRUBIN 0.2 mg/dL (0.2-1.0); TOTAL PROTEIN 7.3 g/dL (6.4-8.2)
--- NOTE | 2021-07-31 12:24 | NUR ---
SW following. Discussed with RN. SW verified pt is a resident at [facility], 2L (does not use oxygen at home), cardiac diet. COVID-19 positive. MEAGHAN spoke with [place] (ph: [phone]), pt can return when medically stable, [facility] can arrange oxygen if needed, with a script. SW will continue to follow.
[2021-07-31] MEDS: ENOXAPARIN 40 MG/0.4 ML SYRINGE. SQ SCH (17:16)
[2021-07-31] MEDS: metFORMIN XR 500 MG TAB.ER.24H PO SCH (17:17)
[2021-07-31] MEDS: REMDESIVIR 100mg in NORMAL SALINE 250ML X 4 DAYS IV SCH (18:33)
[2021-07-31] MEDS: PRAZOSIN 1 MG CAPSULE. PO SCH (20:44)
[2021-07-31] MEDS: traZODone 100 MG TABLET. PO SCH (20:44)
[2021-08-01 03:00] VITALS: BP 119/67
[2021-08-01] MEDS: LEVOTHYROXINE 50 MCG TABLET PO SCH ×2 (05:59→10:46)
[2021-08-01 07:00] VITALS: BP 113/69
[2021-08-01 07:51] LABS: BASO % 0 % (0-3); EOS % 0 % (0-3); HEMATOCRIT 36.3 % (36.0-47.0); HEMOGLOBIN 11.7 g/dL (12.0-15.5); LYMPH # 1.9 x10^3/uL (1.0-4.8); LYMPH % 14 % (24-48); MEAN CORPUSCULAR HEMOGLOBIN 27 pg (25-35); MEAN CORPUSCULAR HGB CONC 32 g/dL (31-37); MEAN CORPUSCULAR VOLUME 83 fL (79-100); MONO # 0.6 x10^3/uL (0.0-1.1); MONO % 4 % (0-9); NEUT # 10.7 x10^3/uL (1.8-7.7); NEUT % 81 % (31-73); PLATELET COUNT 214 x10^3/uL (140-400); RED BLOOD COUNT 4.37 x10^6/uL (3.50-5.40); RED CELL DISTRIBUTION WIDTH 13.9 % (11.5-14.5); WHITE BLOOD COUNT 13.2 x10^3/uL (4.0-11.0)
[2021-08-01] MEDS: INSULIN LISPRO 300 UNITS/3 ML VIAL. SQ SCH ×3 (08:00→18:20)
[2021-08-01 08:08] LABS: CALCIUM 8.5 mg/dL (8.5-10.1); GFR 72.2; POTASSIUM 4.2 mmol/L (3.5-5.1)
[2021-08-01 08:24] LABS: ALBUMIN 2.4 g/dL (3.4-5.0); DIRECT BILIRUBIN 0.1 mg/dL (0.0-0.2); TOTAL BILIRUBIN 0.2 mg/dL (0.2-1.0); TOTAL PROTEIN 6.5 g/dL (6.4-8.2)
[2021-08-01] MEDS: METOPROLOL SUCC 24HR ER 25 MG TAB.ER.24H. PO SCH (10:46)
[2021-08-01] MEDS: METOCLOPRAMIDE 10 MG TABLET. PO SCH ×2 (10:46→18:15)
[2021-08-01] MEDS: ZINC SULFATE 220 MG CAPSULE. PO SCH (10:46)
[2021-08-01] MEDS: THIAMINE 100 MG TABLET. PO SCH (10:46)
[2021-08-01] MEDS: LINAGLIPTIN 5 MG TABLET PO SCH (10:46)
[2021-08-01] MEDS: levETIRAcetam 500 MG TABLET PO SCH ×2 (10:47→21:18)
[2021-08-01] MEDS: ASCORBIC ACID 500 MG TABLET PO SCH (10:47)
[2021-08-01] MEDS: PANTOPRAZOLE 40 MG TABLET.DR. PO SCH (10:47)
[2021-08-01] MEDS: DEXAMETHASONE SOD PHOS 4 MG/ML VIAL IVP SCH (10:47)
[2021-08-01 11:00] VITALS: BP 125/83
[2021-08-01] MEDS: ACETAMINOPHEN 500 MG TABLET PO PRN (11:00)
--- NOTE | 2021-08-01 12:12 | PDOC ---
PROGRESS NOTES Date of Service DATE: 08/01/21 TIME: 12:10 Assessment Problems Medical Problems: (1) Hypoxia Status: Acute (2) Person under investigation for COVID-19 Status: Acute (3) Seizure Status: Acute Epilepsy, breakthrough seizure possibly related to hypoxia from Covid or just nonspecific infection effects. Spell I witnessed today, 08/01, is a psychogenic nonepileptic seizure Cerebral palsy picture with right hemiparesis and intellectual disability. Covid positive, hypoxic Diabetes, hypothyroidism, hypertension, hyperlipidemia Plan Continue levetiracetam 500 mg twice daily Treat Covid and other medical issues Subjective Denies pain Objective Vital Signs Date Time Temp Pulse Resp B/P (MAP) Pulse Ox O2 Delivery O2 Flow Rate FiO2 08/01/21 10:46 95 113/69 08/01/21 07:00 98.0 18 96 Nasal Cannula 2.0 98.0 Intake and Output 08/01/21 07:00 Intake Total 1160 ml Balance 1160 ml Intake Oral 1160 ml # Voids 7 # Bowel Movements 1 PHYSICAL EXAM As I walk in the room she has onset of nonrhythmic tremors of both upper extremities, asynchronous, with preserved consciousness, consistent with nonepileptic seizure PERRL. EOMI. CN: no focal findings. Muscle tone: spastic on the right. Muscle strength: 4/5 right hemiparesis DTR: 2+ Plantar reflex: Flexor Gait: not examined in bed. Sensory exam: Stocking loss. No cerebellar signs elicited. Review of Relevant I have reviewed the following items denice (where applicable) has been applied. Labs Laboratory Tests Test 07/30/21 17:03 07/30/21 21:35 07/31/21 07:30 07/31/21 11:15 Glucose (Fingerstick) 279 mg/dL (70-99) 274 mg/dL (70-99) 152 mg/dL (70-99) White Blood Count 11.4 x10^3/uL (4.0-11.0) Red Blood Count 4.32 x10^6/uL (3.50-5.40) Hemoglobin 11.8 g/dL (12.0-15.5) Hematocrit 35.8 % (36.0-47.0) Mean Corpuscular Volume 83 fL (79-100) Mean Corpuscular Hemoglobin 27 pg (25-35) Mean Corpuscular Hemoglobin Concent 33 g/dL (31-37) Red Cell Distribution Width 13.7 % (11.5-14.5) Platelet Count 203 x10^3/uL (140-400) Neutrophils (%) (Auto) 89 % (31-73) Lymphocytes (%) (Auto) 6 % (24-48) Monocytes (%) (Auto) 4 % (0-9) Eosinophils (%) (Auto) 0 % (0-3) Basophils (%) (Auto) 0 % (0-3) Neutrophils # (Auto) 10.2 x10^3/uL (1.8-7.7) Lymphocytes # (Auto) 0.7 x10^3/uL (1.0-4.8) Monocytes # (Auto) 0.5 x10^3/uL (0.0-1.1) Eosinophils # (Auto) 0.0 x10^3/uL (0.0-0.7) Basophils # (Auto) 0.0 x10^3/uL (0.0-0.2) Sodium Level 133 mmol/L (136-145) Potassium Level 4.5 mmol/L (3.5-5.1) Chloride Level 100 mmol/L (98-107) Carbon Dioxide Level 22 mmol/L (21-32) Anion Gap 11 (6-14) Blood Urea Nitrogen 13 mg/dL (7-20) Creatinine 1.4 mg/dL (0.6-1.0) Estimated GFR (Cockcroft-Gault) 49.0 Glucose Level 215 mg/dL (70-99) Calcium Level 8.5 mg/dL (8.5-10.1) Total Bilirubin 0.2 mg/dL (0.2-1.0) Direct Bilirubin 0.1 mg/dL (0.0-0.2) Aspartate Amino Transf (AST/SGOT) 28 U/L (15-37) Alanine Aminotransferase (ALT/SGPT) 34 U/L (14-59) Alkaline Phosphatase 61 U/L (46-116) Total Protein 7.3 g/dL (6.4-8.2) Albumin 2.6 g/dL (3.4-5.0) Test 07/31/21 11:40 07/31/21 16:22 07/31/21 20:08/01/21 06:45 Glucose (Fingerstick) 257 mg/dL (70-99) 230 mg/dL (70-99) 179 mg/dL (70-99) White Blood Count 13.2 x10^3/uL (4.0-11.0) Red Blood Count 4.37 x10^6/uL (3.50-5.40) Hemoglobin 11.7 g/dL (12.0-15.5) Hematocrit 36.3 % (36.0-47.0) Mean Corpuscular Volume 83 fL (79-100) Mean Corpuscular Hemoglobin 27 pg (25-35) Mean Corpuscular Hemoglobin Concent 32 g/dL (31-37) Red Cell Distribution Width 13.9 % (11.5-14.5) Platelet Count 214 x10^3/uL (140-400) Neutrophils (%) (Auto) 81 % (31-73) Lymphocytes (%) (Auto) 14 % (24-48) Monocytes (%) (Auto) 4 % (0-9) Eosinophils (%) (Auto) 0 % (0-3) Basophils (%) (Auto) 0 % (0-3) Neutrophils # (Auto) 10.7 x10^3/uL (1.8-7.7) Lymphocytes # (Auto) 1.9 x10^3/uL (1.0-4.8) Monocytes # (Auto) 0.6 x10^3/uL (0.0-1.1) Eosinophils # (Auto) 0.0 x10^3/uL (0.0-0.7) Basophils # (Auto) 0.0 x10^3/uL (0.0-0.2) Sodium Level 140 mmol/L (136-145) Potassium Level 4.2 mmol/L (3.5-5.1) Chloride Level 106 mmol/L (98-107) Carbon Dioxide Level 27 mmol/L (21-32) Anion Gap 7 (6-14) Blood Urea Nitrogen 14 mg/dL (7-20) Creatinine 1.0 mg/dL (0.6-1.0) Estimated GFR (Cockcroft-Gault) 72.2 Glucose Level 125 mg/dL (70-99) Calcium Level 8.5 mg/dL (8.5-10.1) Total Bilirubin 0.2 mg/dL (0.2-1.0) Direct Bilirubin 0.1 mg/dL (0.0-0.2) Aspartate Amino Transf (AST/SGOT) 25 U/L (15-37) Alanine Aminotransferase (ALT/SGPT) 35 U/L (14-59) Alkaline Phosphatase 59 U/L (46-116) Total Protein 6.5 g/dL (6.4-8.2) Albumin 2.4 g/dL (3.4-5.0) Test 08/01/21 08:17 08/01/21 11:55 Glucose (Fingerstick) 136 mg/dL (70-99) 131 mg/dL (70-99) Laboratory Tests Test 07/31/21 16:22 07/31/21 20:19 08/01/21 06:45 08/01/21 08:17 Glucose (Fingerstick) 230 mg/dL (70-99) 179 mg/dL (70-99) 136 mg/dL (70-99) White Blood Count 13.2 x10^3/uL (4.0-11.0) Red Blood Count 4.37 x10^6/uL (3.50-5.40) Hemoglobin 11.7 g/dL (12.0-15.5) Hematocrit 36.3 % (36.0-47.0) Mean Corpuscular Volume 83 fL (79-100) Mean Corpuscular Hemoglobin 27 pg (25-35) Mean Corpuscular Hemoglobin Concent 32 g/dL (31-37) Red Cell Distribution Width 13.9 % (11.5-14.5) Platelet Count 214 x10^3/uL (140-400) Neutrophils (%) (Auto) 81 % (31-73) Lymphocytes (%) (Auto) 14 % (24-48) Monocytes (%) (Auto) 4 % (0-9) Eosinophils (%) (Auto) 0 % (0-3) Basophils (%) (Auto) 0 % (0-3) Neutrophils # (Auto) 10.7 x10^3/uL (1.8-7.7) Lymphocytes # (Auto) 1.9 x10^3/uL (1.0-4.8) Monocytes # (Auto) 0.6 x10^3/uL (0.0-1.1) Eosinophils # (Auto) 0.0 x10^3/uL (0.0-0.7) Basophils # (Auto) 0.0 x10^3/uL (0.0-0.2) Sodium Level 140 mmol/L (136-145) Potassium Level 4.2 mmol/L (3.5-5.1) Chloride Level 106 mmol/L (98-107) Carbon Dioxide Level 27 mmol/L (21-32) Anion Gap 7 (6-14) Blood Urea Nitrogen 14 mg/dL (7-20) Creatinine 1.0 mg/dL (0.6-1.0) Estimated GFR (Cockcroft-Gault) 72.2 Glucose Level 125 mg/dL (70-99) Calcium Level 8.5 mg/dL (8.5-10.1) Total Bilirubin 0.2 mg/dL (0.2-1.0) Direct Bilirubin 0.1 mg/dL (0.0-0.2) Aspartate Amino Transf (AST/SGOT) 25 U/L (15-37) Alanine Aminotransferase (ALT/SGPT) 35 U/L (14-59) Alkaline Phosphatase 59 U/L (46-116) Total Protein 6.5 g/dL (6.4-8.2) Albumin 2.4 g/dL (3.4-5.0) Test 08/01/21 11:55 Glucose (Fingerstick) 131 mg/dL (70-99) Medications Current Medications Methylprednisolone Sodium Succinate (SOLU-Medrol 125MG VIAL) 125 mg 1X ONCE IV Last administered on 07/30/21at 10:20; Start 07/30/21 at 09:30; Stop 07/30/21 at 09:33; Status DC Ondansetron HCl (Zofran) 4 mg PRN Q8HRS PRN IVP NAUSEA/VOMITING; Start 07/30/21 at 10:45; Stop 07/30/21 at 17:03; Status DC Acetaminophen (Tylenol) 650 mg PRN Q4HRS PRN PO FEVER > 100.3'F Last administered on 07/30/21at 16:28; Start 07/30/21 at 10:45; Stop 07/30/21 at 17:03; Status DC Insulin Human Lispro (HumaLOG) 0-7 UNITS TIDWMEALS SQ Last administered on 07/31/21at 17:21; Start 07/30/21 at 17:00 Dextrose (Dextrose 50%-Water Syringe) 12.5 gm PRN Q15MIN PRN IV SEE COMMENTS; Start 07/30/21 at 12:15 Loperamide HCl (Imodium) 2 mg PRN Q15MIN PRN PO DIARRHEA; Start 07/30/21 at 12:15 Guaifenesin (Robitussin Dm) 10 ml PRN Q6HRS PRN PO COUGH Last administered on 07/31/21at 17:16; Start 07/30/21 at 12:15 Sodium Chloride 1,000 ml @ 125 mls/hr 1X ONCE IV Last administered on 07/30/21at 12:15; Start 07/30/21 at 12:15; Stop 07/30/21 at 20:14; Status DC Remdesivir 200 mg/ Sodium Chloride 210 ml @ 210 mls/hr 1X ONCE IV Last administered on 07/30/21at 18:25; Start 07/30/21 at 18:00; Stop 07/30/21 at 18:59; Status DC Remdesivir 100 mg/ Sodium Chloride 230 ml @ 460 mls/hr Q24H IV Last administe red on 07/31/21at 18:33; Start 07/31/21 at 18:00; Stop 08/03/21 at 18:29 Ondansetron HCl (Zofran) 4 mg PRN Q4HRS PRN IVP NAUSEA/VOMITING Last administered on 08/01/21at 11:00; Start 07/30/21 at 17:00 Acetaminophen (Tylenol) 650 mg PRN Q6HRS PRN PO FEVER > 100.3'F Last administered on 07/31/21at 09:09; Start 07/30/21 at 17:00 Olanzapine (ZyPREXA ZYDIS) 5 mg PRN BID PRN PO ANXIETY / AGITATION Last administered on 07/31/21at 20:44; Start 07/30/21 at 17:00 Zinc Sulfate (Orazinc) 220 mg DAILY PO Last administered on 08/01/21at 10:46; Start 07/31/21 at 09:00 Thiamine Mononitrate (Vitamin B-1) 100 mg DAILY PO Last administered on 08/01/21at 10:46; Start 07/31/21 at 09:00 Ascorbic Acid (Vitamin C) 500 mg DAILY PO Last administered on 08/01/21 10:47; Start 07/31/21 at 09:00 Dexamethasone Sodium Phosphate (Decadron) 6 mg DAILY IVP Last administered on 08/01/21at 10:47; Start 07/31/21 at 09:00 Enoxaparin Sodium (Lovenox 40mg Syringe) 40 mg Q24H SQ Last administered on 07/31/21at 17:16; Start 07/30/21 at 17:00 Levetiracetam (Keppra) 500 mg BID PO Last administered on 08/01/21 10:47; Start 07/30/21 at 21:00 Levothyroxine Sodium (Synthroid) 50 mcg DAILY07 PO Last administered on 08/01/21at 10:46; Start 07/31/21 at 07:00 Trazodone HCl (Desyrel) 100 mg HS PO Last administered on 07/31/21at 20:44; Start 07/30/21 at 21:00 Pantoprazole Sodium (Protonix) 40 mg DAILYAC PO Last administered on 08/01/21at 10:47; Start 07/31/21 at 07:30 Linagliptin (Tradjenta) 5 mg DAILY PO Last administered on 08/01/21at 10:46; Start 07/31/21 at 09:00 Acetaminophen (Tylenol) 1,000 mg PRN TID PRN PO HEADACHE Last administered on 08/01/21at 11:00; Start 07/30/21 at 20:15 Throat Lozenges (Cepacol Sore Throat Lozenge) 1 jesi PRN Q2HRS PRN PO SORE THROAT; Start 07/30/21 at 20:00 Diphenhydramine HCl (Benadryl) 25 mg PRN Q6HRS PRN PO ITCHING; Start 07/30/21 at 20:00 Ibuprofen (Motrin) 400 mg PRN Q6HRS PRN PO INFLAMMATION; Start 07/30/21 at 20:00 Simethicone (Gas-X) 80 mg PRN QID PRN PO GAS / BLOATING; Start 07/30/21 at 20:00 Metformin HCl (Glucophage Xr) 1,000 mg QEVNG PO Last administered on 07/31/21at 17:17; Start 07/30/21 at 21:00 Metoclopramide HCl (Reglan) 10 mg BIDAC PO Last administered on 08/01/21at 10:46; Start 07/31/21 at 07:30 Metoprolol Succinate (Toprol Xl) 25 mg DAILY PO Last administered on 08/01/21at 10:46; Start 07/31/21 at 09:00 Pantoprazole Sodium (Protonix) 40 mg DAILYAC PO ; Start 07/31/21 at 07:30; Stop 07/30/21 at 20:11; Status DC Polyethylene Glycol (miraLAX PACKET) 17 gm PRN DAILY PRN PO CONSTIPATION; Start 07/30/21 at 20:00 Prazosin HCl (Minipress) 2 mg HS PO Last administered on 07/31/21at 20:44; Start 07/30/21 at 21:00 Active Scripts Active Keppra (Levetiracetam) 500 Mg Tablet 500 Mg PO BID 30 Days Reported Loratadine 10 Mg Tablet 10 Mg PO Januvia (Sitagliptin Phosphate) 100 Mg Tablet 100 Mg PO DAILY Lisinopril 5 Mg Tablet 5 Mg PO DAILY Trazodone Hcl 100 Mg Tablet 100 Mg PO HS Toviaz (Fesoterodine Fumarate) 4 Mg Tab.er.24h 4 Mg PO DAILY Ranitidine Hcl 150 Mg Tablet 150 Mg PO DAILY Omeprazole 40 Mg Capsule.dr 40 Mg PO DAILY Metoclopramide Hcl 5 Mg/5 Ml Solution 5 Mg PO TID Metformin Hcl Er (Metformin Hcl) 500 Mg Tab.er.24 500 Mg PO DAILYBFRSUP Loxapine (Loxapine Succinate) 10 Mg Capsule 10 Mg PO BID Levothyroxine Sodium 50 Mcg Tablet 50 Mcg PO DAILY Benztropine Mesylate 0.5 Mg Tablet 0.5 Mg PO BID Vitals/I & O Vital Sign - Last 24 Hours 07/31/21 07/31/21 07/31/21 07/31/21 15:00 19:00 20:00 20:44 Temp 99.0 98.8 99.0 98.8 Pulse 91 84 91 Resp 20 16 B/P (MAP) 123/74 (90) 124/81 (95) 123/74 Pulse Ox 98 96 O2 Delivery Nasal Cannula Nasal Cannula Nasal Cannula O2 Flow Rate 2.0 2.0 2.0 9/12/2008/01/21 08/01/21 08/01/21 23:00 03:00 07:00 10:46 Temp 98.2 98.5 98.0 98.2 98.5 98.0 Pulse 82 72 95 95 Resp 19 18 18 B/P (MAP) 117/71 (86) 119/67 (84) 113/69 (84) 113/69 Pulse Ox 96 96 96 O2 Delivery Nasal Cannula Nasal Cannula Nasal Cannula O2 Flow Rate 2.0 2.0 2.0 Intake and Output 07/31/21 07/31/21 08/01/21 15:00 23:00 07:00 Intake Total 320 ml 640 ml 200 ml Balance 320 ml 640 ml 200 ml Justicifation of Admission Dx: Justifications for Admission: Justification of Admission Dx: N/A SAM ISABEL MD Aug 01, 2021 12:12
--- NOTE | 2021-08-01 14:15 | NUR ---
SS following for discharge planning. SS reviewed pt chart and discussed with pt RN. Pt is currently requiring oxygen at two liters nasal canula. COVID19 positive. Pt on IV Decadron and IV Remdesivir. SS will continue to follow for discharge planning.
--- NOTE | 2021-08-01 14:33 | PDOC ---
[facility] PROGRESS NOTE Date of Service DOS: DATE: 08/01/21 TIME: 14:21 Chief Complaint Chief Complaint Acute respiratory failure with hypoxia COVID-19 Positive Seizures CARLEY Transaminitis Anemia Diarrhea Moderate protein calorie malnutrition - likely related to COVID 19 Developmental mental delay, MRDD with psychosis History of Present Illness History of Present Illness Ms Mena is a 46-year-old female w/ PMHX developmental mental delay, MRDD, seizure disorder, psychosis who arrives via EMS after having a witnessed seizure lasting approximately 2 minutes at her prison. Patient resides in a prison and has a known seizure disorder. Patient was unresponsive during the time the seizure occurred and upon pattern changer arrival the seizure had resolved. Of note, the patient has been coughing and short of air during this time as well. Several residents of the patient's residence are being treated for Covid. Patient reports she has a sore throat when she coughs and had saturations in the mid 80s upon arrival. She notes that she has been having diarrhea for at least 6 days as well after a roommate coughed on her. Not vaccinated for COVID 19. WBC 7.1, Hb 11.7, platelets 206, NA 134, K4.6, BUN 15, CR 1.3, glucose 190, bilirubin 0.2, AST 45, ALT 48, alk phos 72, troponin 0, BNP 60, albumin 2.9. Rapid nucleic amplification test positive for COVID-19. Urine negative. 07/31/2021: Afebrile, currently breathing on 2 L nasal cannula. COVID-19 positive. We will continue treatment with remdesivir, steroids, and prophylac tic antibiotics. Continue to monitor daily LFTs. Appreciate neurology recommendations in the care of this patient. 08/01: Patient seen and examined. Discussed with RN. Chart reviewed. Patient on day 3 course of Remdesivir. Patient on 2L O2 per nasal cannula. Patient had a witnessed [id number] seizure last night with post-ictal state. Patient also had focal seizure during examination. Vitals/I&O Vitals/I&O: Vital Signs Date Time Temp Pulse Resp B/P (MAP) Pulse Ox O2 Delivery O2 Flow Rate FiO2 08/01/21 11:00 98.0 92 18 125/83 (97) 96 Nasal Cannula 2.0 98.0 I & O0 07/31/21 07/31/21 08/01/21 15:00 23:00 07:00 Intake Total 320 ml 640 ml 200 ml Balance 320 ml 640 ml 200 ml Physical Exam General: Alert, Oriented X3, Cooperative, mild distress Heart: Regular rate Lungs: Other (No increased work of breathing on 2L nasal cannula) Abdomen: Normal bowel sounds, Soft, No tenderness, No hepatosplenomegaly, No masses Extremities: No clubbing, No cyanosis, No edema, Normal pulses, No tenderness/swelling Skin: No rashes, No breakdown, No significant lesion Labs Labs: Laboratory Tests Test 07/31/21 16:22 07/31/21 20:19 08/01/21 06:45 08/01/21 08:17 Glucose (Fingerstick) 230 mg/dL (70-99) 179 mg/dL (70-99) 136 mg/dL (70-99) White Blood Count 13.2 x10^3/uL (4.0-11.0) Red Blood Count 4.37 x10^6/uL (3.50-5.40) Hemoglobin 11.7 g/dL (12.0-15.5) Hematocrit 36.3 % (36.0-47.0) Mean Corpuscular Volume 83 fL (79-100) Mean Corpuscular Hemoglobin 27 pg (25-35) Mean Corpuscular Hemoglobin Concent 32 g/dL (31-37) Red Cell Distribution Width 13.9 % (11.5-14.5) Platelet Count 214 x10^3/uL (140-400) Neutrophils (%) (Auto) 81 % (31-73) Lymphocytes (%) (Auto) 14 % (24-48) Monocytes (%) (Auto) 4 % (0-9) Eosinophils (%) (Auto) 0 % (0-3) Basophils (%) (Auto) 0 % (0-3) Neutrophils # (Auto) 10.7 x10^3/uL (1.8-7.7) Lymphocytes # (Auto) 1.9 x10^3/uL (1.0-4.8) Monocytes # (Auto) 0.6 x10^3/uL (0.0-1.1) Eosinophils # (Auto) 0.0 x10^3/uL (0.0-0.7) Basophils # (Auto) 0.0 x10^3/uL (0.0-0.2) Sodium Level 140 mmol/L (136-145) Potassium Level 4.2 mmol/L (3.5-5.1) Chloride Level 106 mmol/L (98-107) Carbon Dioxide Level 27 mmol/L (21-32) Anion Gap 7 (6-14) Blood Urea Nitrogen 14 mg/dL (7-20) Creatinine 1.0 mg/dL (0.6-1.0) Estimated GFR (Cockcroft-Gault) 72.2 Glucose Level 125 mg/dL (70-99) Calcium Level 8.5 mg/dL (8.5-10.1) Total Bilirubin 0.2 mg/dL (0.2-1.0) Direct Bilirubin 0.1 mg/dL (0.0-0.2) Aspartate Amino Transf (AST/SGOT) 25 U/L (15-37) Alanine Aminotransferase (ALT/SGPT) 35 U/L (14-59) Alkaline Phosphatase 59 U/L (46-116) Total Protein 6.5 g/dL (6.4-8.2) Albumin 2.4 g/dL (3.4-5.0) Test 08/01/21 11:55 Glucose (Fingerstick) 131 mg/dL (70-99) Review of Systems Review of Systems: Patient denied blurry vision or loss of vision. Assessment and Plan Assessmemt and Plan Problems Medical Problems: (1) Hypoxia Status: Acute (2) Person under investigation for COVID-19 Status: Acute (3) Seizure Status: Acute Assessment: Acute respiratory failure with hypoxia COVID-19 Positive Seizures CARLEY Transaminitis Anemia Diarrhea Moderate protein calorie malnutrition - likely related to COVID 19 Developmental mental delay, MRDD with psychosis Plan: 1. Continue COVID-19 Protocol (Remdesivir, dexamethasone, vitamins and minerals, robitussin) -Remdesivir course (07/29-08/03) 2. Add IV doxycycline 100 BID to COVID Protocol 3. Add aspirin to COVID protocol 4. Monitor renal function 5. Appreciate Neurology consultation input 6. Continue Zyprexa (holding loxapine because it lowers seizure threshold) 7. Continue home meds 8. Continue DVT prophylaxis (Lovenox) 9. encourage PO intake 10. Discharge disposition pending Comment Review of Relevant I have reviewed the following items denice (where applicable) has been applied. Medications: Current Medications Medications (Trade) Dose Ordered Sig/Prateek Route PRN Reason Start Time Stop Time Status Last Admin Dose Admin Remdesivir 100 mg/ Sodium Chloride 230 ml @ 460 mls/hr Q24H IV 07/31/21 18:00 08/03/21 18:29 07/31/21 18:33 Justifications for Admission Other Justification ANDRA BHATIA III DO Aug 01, 2021 14:33
[2021-08-01 15:00] VITALS: BP 141/83
[2021-08-01] MEDS: ENOXAPARIN 40 MG/0.4 ML SYRINGE. SQ SCH (18:16)
[2021-08-01] MEDS: metFORMIN XR 500 MG TAB.ER.24H PO SCH (18:16)
[2021-08-01] MEDS: REMDESIVIR 100mg in NORMAL SALINE 250ML X 4 DAYS IV SCH (18:17)
[2021-08-01 19:00] VITALS: BP 132/78
[2021-08-01] MEDS: traZODone 100 MG TABLET. PO SCH (21:18)
[2021-08-01] MEDS: guaiFENesin DM 200MG/20MG 10 ML SYRUP PO PRN (21:20)
[2021-08-01] MEDS: DOXYCYCLINE HYCLATE 100 MG in IV DEXTROSE 5% 100ML 100 ML IV SCH (21:25)
[2021-08-01] MEDS: PRAZOSIN 1 MG CAPSULE. PO SCH (21:26)
[2021-08-01 23:00] VITALS: BP 105/65
[2021-08-02 03:00] VITALS: BP 117/80
[2021-08-02 07:00] VITALS: BP 105/82
[2021-08-02] MEDS: INSULIN LISPRO 300 UNITS/3 ML VIAL. SQ SCH ×3 (08:00→16:26)
[2021-08-02] MEDS: ASCORBIC ACID 500 MG TABLET PO SCH (10:14)
[2021-08-02] MEDS: THIAMINE 100 MG TABLET. PO SCH (10:14)
[2021-08-02] MEDS: levETIRAcetam 500 MG TABLET PO SCH ×2 (10:14→20:41)
[2021-08-02] MEDS: ASPIRIN 325 MG TABLET PO SCH (10:14)
[2021-08-02] MEDS: METOPROLOL SUCC 24HR ER 25 MG TAB.ER.24H. PO SCH (10:14)
[2021-08-02] MEDS: METOCLOPRAMIDE 10 MG TABLET. PO SCH ×2 (10:15→16:56)
[2021-08-02] MEDS: PANTOPRAZOLE 40 MG TABLET.DR. PO SCH (10:15)
[2021-08-02] MEDS: ZINC SULFATE 220 MG CAPSULE. PO SCH (10:15)
[2021-08-02] MEDS: LINAGLIPTIN 5 MG TABLET PO SCH (10:15)
[2021-08-02] MEDS: DEXAMETHASONE SOD PHOS 4 MG/ML VIAL IVP SCH (10:16)
[2021-08-02] MEDS: guaiFENesin DM 200MG/20MG 10 ML SYRUP PO PRN ×3 (10:16→20:41)
[2021-08-02] MEDS: DOXYCYCLINE HYCLATE 100 MG in IV DEXTROSE 5% 100ML 100 ML IV SCH (10:17)
--- NOTE | 2021-08-02 10:22 | PDOC ---
[facility] [facility] PROGRESS NOTE Date of Service DOS: DATE: 08/02/21 TIME: 10:15 Chief Complaint Chief Complaint Acute respiratory failure with hypoxia COVID-19 Positive Seizures CARLEY Transaminitis Anemia Diarrhea Moderate protein calorie malnutrition - likely related to COVID 19 Developmental mental delay, MRDD with psychosis History of Present Illness History of Present Illness Ms Mena is a 46-year-old female w/ PMHX developmental mental delay, MRDD, seizure disorder, psychosis who arrives via EMS after having a witnessed seizure lasting approximately 2 minutes at her assisted. Patient resides in a assisted and has a known seizure disorder. Patient was unresponsive during the time the seizure occurred and upon buying intern arrival the seizure had resolved. Of note, the patient has been coughing and short of air during this time as well. Several residents of the patient's residence are being treated for Covid. Patient reports she has a sore throat when she coughs and had saturations in the mid 80s upon arrival. She notes that she has been having diarrhea for at least 6 days as well after a roommate coughed on her. Not vaccinated for COVID 19. WBC 7.1, Hb 11.7, platelets 206, NA 134, K4.6, BUN 15, CR 1.3, glucose 190, bilirubin 0.2, AST 45, ALT 48, alk phos 72, troponin 0, BNP 60, albumin 2.9. Rapid nucleic amplification test positive for COVID-19. Urine negative. 07/31/2021: Afebrile, currently breathing on 2 L nasal cannula. COVID-19 positive. We will continue treatment with remdesivir, steroids, and prophylac tic antibiotics. Continue to monitor daily LFTs. Appreciate neurology recommendations in the care of this patient. 08/01: Patient seen and examined. Discussed with RN. Chart reviewed. Patient on day 3 course of Remdesivir. Patient on 2L O2 per nasal cannula. Patient had a witnessed [id number] seizure last night with post-ictal state. Patient also had focal seizure during examination. 08/02: Patient seen and examined. Discussed with RN. Chart reviewed. Patient was in no acute distress. Patient on day 4 of Remdesivir. She continues to be on 2L O2 per nasal cannula. Patient endorses pain in her chest when she breathes, but denies pain elsewhere. Patient has had continued small seizures per nurse report. Vitals/I&O Vitals/I&O: Vital Signs Date Time Temp Pulse Resp B/P (MAP) Pulse Ox O2 Delivery O2 Flow Rate FiO2 08/02/21 07:00 98.1 82 18 105/82 (90) 95 Nasal Cannula 2.0 98.1 I & O 08/01/21 08/01/21 08/02/21 15:00 23:00 07:00 Intake Total 750 ml Balance 750 ml Physical Exam General: Alert, Oriented X3, Cooperative, No acute distress Heart: Regular rate Lungs: Clear, Other (No increased work of breathing on 2L nasal cannula) Abdomen: Normal bowel sounds, Soft, No tenderness, No hepatosplenomegaly, No masses Extremities: No clubbing, No cyanosis, No edema, Normal pulses, No tenderness/swelling Skin: No rashes, No breakdown, No significant lesion Labs Labs: Laboratory Tests Test 08/01/21 11:55 08/01/21 16:49 08/01/21 19:40 08/02/21 07:57 Glucose (Fingerstick) 131 mg/dL (70-99) 230 mg/dL (70-99) 280 mg/dL (70-99) 159 mg/dL (70-99) Review of Systems Review of Systems: Patient denies nausea and vomiting Assessment and Plan Assessmemt and Plan Problems Medical Problems: (1) Hypoxia Status: Acute (2) Person under investigation for COVID-19 Status: Acute (3) Seizure Status: Acute Assessment: Acute respiratory failure with hypoxia COVID-19 Positive Seizures CARLEY Transaminitis Anemia Diarrhea Moderate protein calorie malnutrition - likely related to COVID 19 Developmental mental delay, MRDD with psychosis Plan: 1. Continue COVID-19 Protocol (Remdesivir, doxycycline, dexamethasone, vitamins and minerals, robitussin, aspirin) -Remdesivir course (07/29-08/03) 2. Monitor renal function 3. Appreciate Neurology consultation input 4. Continue Zyprexa (holding loxapine because it lowers seizure threshold) 5. Continue home meds 6. Continue DVT prophylaxis (Lovenox) 7. encourage PO intake 8. Discharge disposition pending (plan to keep throughout the weekend) Comment Review of Relevant I have reviewed the following items denice (where applicable) has been applied. Medications: Current Medications Medications (Trade) Dose Ordered Sig/Prateek Route PRN Reason Start Time Stop Time Status Last Admin Dose Admin Doxycycline Hyclate 100 mg/ Dextrose 100 ml @ 50 mls/hr BID IV 08/01/21 21:00 08/01/21 21:25 Justifications for Admission Other Justification ANDRA BHATIA III DO Aug 02, 2021 10:22
[2021-08-02 11:00] VITALS: BP 123/69
[2021-08-02 11:54] LABS: BASO % 0 % (0-3); EOS % 0 % (0-3); HEMATOCRIT 37.5 % (36.0-47.0); HEMOGLOBIN 12.2 g/dL (12.0-15.5); LYMPH # 2.2 x10^3/uL (1.0-4.8); LYMPH % 22 % (24-48); MEAN CORPUSCULAR HEMOGLOBIN 27 pg (25-35); MEAN CORPUSCULAR HGB CONC 33 g/dL (31-37); MEAN CORPUSCULAR VOLUME 84 fL (79-100); MONO # 0.6 x10^3/uL (0.0-1.1); MONO % 6 % (0-9); NEUT # 7.3 x10^3/uL (1.8-7.7); NEUT % 73 % (31-73); PLATELET COUNT 245 x10^3/uL (140-400); RED BLOOD COUNT 4.48 x10^6/uL (3.50-5.40); RED CELL DISTRIBUTION WIDTH 13.8 % (11.5-14.5)
[2021-08-02 12:11] LABS: CALCIUM 8.9 mg/dL (8.5-10.1); CREATININE 1.1 mg/dL (0.6-1.0); GFR 64.7; POTASSIUM 4.2 mmol/L (3.5-5.1)
[2021-08-02 12:16] LABS: ALBUMIN 2.5 g/dL (3.4-5.0); DIRECT BILIRUBIN 0.1 mg/dL (0.0-0.2); TOTAL BILIRUBIN 0.2 mg/dL (0.2-1.0); TOTAL PROTEIN 6.8 g/dL (6.4-8.2)
[2021-08-02] MEDS ORDERED: methylPREDNISolone 4 MG TABLET. PO SCH (12:30)
[2021-08-02 15:00] VITALS: BP 134/84
--- NOTE | 2021-08-02 16:19 | NUR ---
SS following up with discharge planning. SS reviewed pt chart and discussed with pt RN. Pt is currently requiring oxygen at two liters nasal canula. Pt is from [facility]. COVID19 positive. SS will continue to follow for discharge planning.
[2021-08-02] MEDS: LACTOBACILLUS RHAMNOSUS GG 1 CAPSULE. PO SCH ×2 (16:54→20:41)
[2021-08-02] MEDS: ENOXAPARIN 40 MG/0.4 ML SYRINGE. SQ SCH (16:55)
[2021-08-02] MEDS: metFORMIN XR 500 MG TAB.ER.24H PO SCH (16:55)
[2021-08-02 19:00] VITALS: BP 111/67
[2021-08-02] MEDS: traZODone 100 MG TABLET. PO SCH (20:41)
[2021-08-02] MEDS: DOXYCYCLINE HYCLATE 100 MG TABLET PO SCH (20:41)
[2021-08-02] MEDS: PRAZOSIN 1 MG CAPSULE. PO SCH (21:00)
[2021-08-02 23:00] VITALS: BP 121/69
[2021-08-03 03:00] VITALS: BP 122/78
[2021-08-03 07:00] VITALS: BP 114/74
[2021-08-03] MEDS: INSULIN LISPRO 300 UNITS/3 ML VIAL. SQ SCH ×3 (08:00→17:36)
[2021-08-03 09:21] LABS: BASO % 0 % (0-3); EOS % 0 % (0-3); HEMATOCRIT 37.1 % (36.0-47.0); HEMOGLOBIN 11.9 g/dL (12.0-15.5); LYMPH # 3.1 x10^3/uL (1.0-4.8); LYMPH % 27 % (24-48); MEAN CORPUSCULAR HEMOGLOBIN 27 pg (25-35); MEAN CORPUSCULAR HGB CONC 32 g/dL (31-37); MEAN CORPUSCULAR VOLUME 83 fL (79-100); MONO # 0.6 x10^3/uL (0.0-1.1); MONO % 5 % (0-9); NEUT # 7.8 x10^3/uL (1.8-7.7); NEUT % 68 % (31-73); PLATELET COUNT 282 x10^3/uL (140-400); RED BLOOD COUNT 4.46 x10^6/uL (3.50-5.40); RED CELL DISTRIBUTION WIDTH 13.7 % (11.5-14.5); WHITE BLOOD COUNT 11.6 x10^3/uL (4.0-11.0)
[2021-08-03] MEDS: DOXYCYCLINE HYCLATE 100 MG TABLET PO SCH ×2 (09:40→21:00)
[2021-08-03] MEDS: methylPREDNISolone 4 MG TABLET. PO SCH ×4 (09:41→21:00)
[2021-08-03] MEDS: levETIRAcetam 500 MG TABLET PO SCH (09:41)
[2021-08-03] MEDS: LINAGLIPTIN 5 MG TABLET PO SCH (09:41)
[2021-08-03] MEDS: METOCLOPRAMIDE 10 MG TABLET. PO SCH ×2 (09:41→17:32)
[2021-08-03] MEDS: LEVOTHYROXINE 50 MCG TABLET PO SCH (09:41)
[2021-08-03] MEDS: ASCORBIC ACID 500 MG TABLET PO SCH (09:41)
[2021-08-03] MEDS: THIAMINE 100 MG TABLET. PO SCH (09:41)
[2021-08-03] MEDS: PANTOPRAZOLE 40 MG TABLET.DR. PO SCH (09:41)
[2021-08-03] MEDS: ASPIRIN 325 MG TABLET PO SCH (09:41)
[2021-08-03] MEDS: LACTOBACILLUS RHAMNOSUS GG 1 CAPSULE. PO SCH (09:41)
[2021-08-03] MEDS: ZINC SULFATE 220 MG CAPSULE. PO SCH (09:41)
[2021-08-03] MEDS: METOPROLOL SUCC 24HR ER 25 MG TAB.ER.24H. PO SCH ×2 (09:41→17:32)
[2021-08-03] MEDS: ACETAMINOPHEN 500 MG TABLET PO PRN (09:42)
[2021-08-03 09:47] LABS: CALCIUM 8.8 mg/dL (8.5-10.1); GFR 72.2; POTASSIUM 4.1 mmol/L (3.5-5.1)
[2021-08-03 09:52] LABS: ALBUMIN 2.5 g/dL (3.4-5.0); DIRECT BILIRUBIN 0.1 mg/dL (0.0-0.2); TOTAL BILIRUBIN 0.2 mg/dL (0.2-1.0); TOTAL PROTEIN 6.6 g/dL (6.4-8.2)
[2021-08-03 11:00] VITALS: BP 112/69
--- NOTE | 2021-08-03 14:02 | PDOC ---
[facility] [facility] PROGRESS NOTE Date of Service DOS: DATE: 08/03/21 TIME: 14:02 Chief Complaint Chief Complaint Acute respiratory failure with hypoxia COVID-19 Positive Seizures CARLEY Transaminitis Anemia Diarrhea Moderate protein calorie malnutrition - likely related to COVID 19 Developmental mental delay, MRDD with psychosis History of Present Illness History of Present Illness Ms Mena is a 46-year-old female w/ PMHX developmental mental delay, MRDD, seizure disorder, psychosis who arrives via EMS after having a witnessed seizure lasting approximately 2 minutes at her longterm. Patient resides in a longterm and has a known seizure disorder. Patient was unresponsive during the time the seizure occurred and upon deburring machine operator arrival the seizure had resolved. Of note, the patient has been coughing and short of air during this time as well. Several residents of the patient's residence are being treated for Covid. Patient reports she has a sore throat when she coughs and had saturations in the mid 80s upon arrival. She notes that she has been having diarrhea for at least 6 days as well after a roommate coughed on her. Not vaccinated for COVID 19. WBC 7.1, Hb 11.7, platelets 206, NA 134, K4.6, BUN 15, CR 1.3, glucose 190, bilirubin 0.2, AST 45, ALT 48, alk phos 72, troponin 0, BNP 60, albumin 2.9. Rapid nucleic amplification test positive for COVID-19. Urine negative. 08/03: Patient seen and examined. Discussed with RN. Chart reviewed. Patient was in no acute distress. Patient on day 4 of Remdesivir. She continues to be on 2L O2 per nasal cannula. Patient endorses pain in her chest when she breathes, but denies pain elsewhere. Patient has had continued small seizures per nurse report. Vitals/I&O Vitals/I&O: Vital Signs Date Time Temp Pulse Resp B/P (MAP) Pulse Ox O2 Delivery O2 Flow Rate FiO2 08/03/21 11:00 98.3 85 18 112/69 (83) 98 Nasal Cannula 2.0 98.3 Physical Exam General: Alert, Oriented X3, Cooperative, No acute distress Heart: Regular rate Lungs: Clear, Other (No increased work of breathing on 2L nasal cannula) Abdomen: Normal bowel sounds, Soft, No tenderness, No hepatosplenomegaly, No masses Extremities: No clubbing, No cyanosis, No edema, Normal pulses, No tenderness/swelling Skin: No rashes, No breakdown, No significant lesion Labs Labs: Laboratory Tests Test 08/02/21 16:21 08/02/21 20:47 08/03/21 07:32 08/03/21 08:20 Glucose (Fingerstick) 143 mg/dL (70-99) 125 mg/dL (70-99) 131 mg/dL (70-99) White Blood Count 11.6 x10^3/uL (4.0-11.0) Red Blood Count 4.46 x10^6/uL (3.50-5.40) Hemoglobin 11.9 g/dL (12.0-15.5) Hematocrit 37.1 % (36.0-47.0) Mean Corpuscular Volume 83 fL (79-100) Mean Corpuscular Hemoglobin 27 pg (25-35) Mean Corpuscular Hemoglobin Concent 32 g/dL (31-37) Red Cell Distribution Width 13.7 % (11.5-14.5) Platelet Count 282 x10^3/uL (140-400) Neutrophils (%) (Auto) 68 % (31-73) Lymphocytes (%) (Auto) 27 % (24-48) Monocytes (%) (Auto) 5 % (0-9) Eosinophils (%) (Auto) 0 % (0-3) Basophils (%) (Auto) 0 % (0-3) Neutrophils # (Auto) 7.8 x10^3/uL (1.8-7.7) Lymphocytes # (Auto) 3.1 x10^3/uL (1.0-4.8) Monocytes # (Auto) 0.6 x10^3/uL (0.0-1.1) Eosinophils # (Auto) 0.0 x10^3/uL (0.0-0.7) Basophils # (Auto) 0.0 x10^3/uL (0.0-0.2) Sodium Level 140 mmol/L (136-145) Potassium Level 4.1 mmol/L (3.5-5.1) Chloride Level 106 mmol/L (98-107) Carbon Dioxide Level 25 mmol/L (21-32) Anion Gap 9 (6-14) Blood Urea Nitrogen 15 mg/dL (7-20) Creatinine 1.0 mg/dL (0.6-1.0) Estimated GFR (Cockcroft-Gault) 72.2 Glucose Level 118 mg/dL (70-99) Calcium Level 8.8 mg/dL (8.5-10.1) Total Bilirubin 0.2 mg/dL (0.2-1.0) Direct Bilirubin 0.1 mg/dL (0.0-0.2) Aspartate Amino Transf (AST/SGOT) 33 U/L (15-37) Alanine Aminotransferase (ALT/SGPT) 39 U/L (14-59) Alkaline Phosphatase 58 U/L (46-116) Total Protein 6.6 g/dL (6.4-8.2) Albumin 2.5 g/dL (3.4-5.0) Test 08/03/21 11:29 Glucose (Fingerstick) 149 mg/dL (70-99) Assessment and Plan Assessmemt and Plan Problems Medical Problems: (1) Hypoxia Status: Acute (2) Person under investigation for COVID-19 Status: Acute (3) Seizure Status: Acute Comment Review of Relevant I have reviewed the following items denice (where applicable) has been applied. Medications: Current Medications Medications (Trade) Dose Ordered Sig/Prateek Route PRN Reason Start Time Stop Time Status Last Admin Dose Admin Doxycycline Hyclate (Vibra-Tab) 100 mg BID PO 08/02/21 21:00 08/03/21 09:40 Methylprednisolone (Medrol) 8 mg BID PO 08/03/21 09:00 08/03/21 21:01 08/03/21 09:41 Methylprednisolone (Medrol) 4 mg BIDPCLD PO 08/03/21 12:30 08/03/21 17:31 08/03/21 12:40 Justifications for Admission Other Justification JOSEY HOUSTON MD Aug 03, 2021 14:02
[2021-08-03 15:18] VITALS: BP 102/72
[2021-08-03] MEDS: metFORMIN XR 500 MG TAB.ER.24H PO SCH (17:32)
[2021-08-03] MEDS: ENOXAPARIN 40 MG/0.4 ML SYRINGE. SQ SCH (17:32)
[2021-08-03 19:00] VITALS: BP 95/58
[2021-08-03 23:00] VITALS: BP 105/72
[2021-08-04] VITALS (7 sets, daily range): BP systolic 97–139; BP diastolic 65–75
[2021-08-04] MEDS: guaiFENesin DM 200MG/20MG 10 ML SYRUP PO PRN ×2 (03:26→21:44)
[2021-08-04] MEDS: traZODone 100 MG TABLET. PO SCH ×2 (03:28→21:38)
[2021-08-04] MEDS: levETIRAcetam 500 MG TABLET PO SCH ×3 (03:28→21:38)
[2021-08-04] MEDS: LACTOBACILLUS RHAMNOSUS GG 1 CAPSULE. PO SCH ×3 (03:28→21:38)
[2021-08-04] MEDS: PRAZOSIN 1 MG CAPSULE. PO SCH ×2 (03:29→21:38)
[2021-08-04 06:41] LABS: BASO % 0 % (0-3); EOS % 0 % (0-3); HEMATOCRIT 35.9 % (36.0-47.0); HEMOGLOBIN 11.8 g/dL (12.0-15.5); LYMPH % 26 % (24-48); MEAN CORPUSCULAR HEMOGLOBIN 27 pg (25-35); MEAN CORPUSCULAR HGB CONC 33 g/dL (31-37); MEAN CORPUSCULAR VOLUME 82 fL (79-100); MONO # 0.8 x10^3/uL (0.0-1.1); MONO % 7 % (0-9); NEUT # 7.7 x10^3/uL (1.8-7.7); NEUT % 67 % (31-73); PLATELET COUNT 304 x10^3/uL (140-400); RED BLOOD COUNT 4.36 x10^6/uL (3.50-5.40); RED CELL DISTRIBUTION WIDTH 13.7 % (11.5-14.5); WHITE BLOOD COUNT 11.5 x10^3/uL (4.0-11.0)
[2021-08-04 07:04] LABS: CALCIUM 8.8 mg/dL (8.5-10.1); GFR 72.2; POTASSIUM 4.4 mmol/L (3.5-5.1)
[2021-08-04 07:09] LABS: ALBUMIN 2.4 g/dL (3.4-5.0); DIRECT BILIRUBIN 0.1 mg/dL (0.0-0.2); TOTAL BILIRUBIN 0.3 mg/dL (0.2-1.0); TOTAL PROTEIN 7.1 g/dL (6.4-8.2)
[2021-08-04] MEDS: INSULIN LISPRO 300 UNITS/3 ML VIAL. SQ SCH ×3 (08:00→17:00)
[2021-08-04] MEDS: METOPROLOL SUCC 24HR ER 25 MG TAB.ER.24H. PO SCH (09:23)
[2021-08-04] MEDS: THIAMINE 100 MG TABLET. PO SCH (09:23)
[2021-08-04] MEDS: ZINC SULFATE 220 MG CAPSULE. PO SCH (09:23)
[2021-08-04] MEDS: DOXYCYCLINE HYCLATE 100 MG TABLET PO SCH ×2 (09:23→21:38)
[2021-08-04] MEDS: ASCORBIC ACID 500 MG TABLET PO SCH (09:23)
[2021-08-04] MEDS: PANTOPRAZOLE 40 MG TABLET.DR. PO SCH (09:23)
[2021-08-04] MEDS: METOCLOPRAMIDE 10 MG TABLET. PO SCH ×2 (09:23→16:30)
[2021-08-04] MEDS: ACETAMINOPHEN 500 MG TABLET PO PRN (09:23)
[2021-08-04] MEDS: ASPIRIN 325 MG TABLET PO SCH (09:24)
[2021-08-04] MEDS: LINAGLIPTIN 5 MG TABLET PO SCH (09:24)
[2021-08-04] MEDS: methylPREDNISolone 4 MG TABLET. PO SCH ×3 (09:24→17:16)
[2021-08-04] MEDS: LEVOTHYROXINE 50 MCG TABLET PO SCH (09:28)
--- NOTE | 2021-08-04 14:42 | PDOC ---
[facility] [facility] PROGRESS NOTE Date of Service DOS: DATE: 08/04/21 TIME: 14:41 Chief Complaint Chief Complaint Acute respiratory failure with hypoxia COVID-19 Positive Seizures CARLEY Transaminitis Anemia Diarrhea Moderate protein calorie malnutrition - likely related to COVID 19 Developmental mental delay, MRDD with psychosis History of Present Illness History of Present Illness Ms Mena is a 46-year-old female w/ PMHX developmental mental delay, MRDD, seizure disorder, psychosis who arrives via EMS after having a witnessed seizure lasting approximately 2 minutes at her residential. Patient resides in a residential and has a known seizure disorder. Patient was unresponsive during the time the seizure occurred and upon guest services attendant arrival the seizure had resolved. Of note, the patient has been coughing and short of air during this time as well. Several residents of the patient's residence are being treated for Covid. Patient reports she has a sore throat when she coughs and had saturations in the mid 80s upon arrival. She notes that she has been having diarrhea for at least 6 days as well after a roommate coughed on her. Not vaccinated for COVID 19. WBC 7.1, Hb 11.7, platelets 206, NA 134, K4.6, BUN 15, CR 1.3, glucose 190, bilirubin 0.2, AST 45, ALT 48, alk phos 72, troponin 0, BNP 60, albumin 2.9. Rapid nucleic amplification test positive for COVID-19. Urine negative. 08/04: Patient seen and examined. Discussed with RN. doing well, plan DC tomorrw is now s/p Remdesivir. brething well, . concern for further seizure, risk, Vitals/I&O Vitals/I&O: Vital Signs Date Time Temp Pulse Resp B/P (MAP) Pulse Ox O2 Delivery O2 Flow Rate FiO2 08/04/21 11:00 98.2 71 18 97/70 (79) 95 98.2 08/04/21 08:00 Room Air 08/03/21 19:00 2.0 I & O 08/03/21 08/03/21 08/04/21 15:00 23:00 07:00 Intake Total 120 ml 320 ml 500 ml Balance 120 ml 320 ml 500 ml Physical Exam General: Alert, Oriented X3, Cooperative, No acute distress Heart: Regular rate Lungs: Clear, Other (No increased work of breathing on 2L nasal cannula) Abdomen: Normal bowel sounds, Soft, No tenderness, No hepatosplenomegaly, No masses Extremities: No clubbing, No cyanosis, No edema, Normal pulses, No tenderness/swelling Skin: No rashes, No breakdown, No significant lesion Labs Labs: Laboratory Tests Test 08/03/21 16:00 08/03/21 21:10 08/04/21 05:30 08/04/21 09:19 Glucose (Fingerstick) 200 mg/dL (70-99) 154 mg/dL (70-99) 141 mg/dL (70-99) White Blood Count 11.5 x10^3/uL (4.0-11.0) Red Blood Count 4.36 x10^6/uL (3.50-5.40) Hemoglobin 11.8 g/dL (12.0-15.5) Hematocrit 35.9 % (36.0-47.0) Mean Corpuscular Volume 82 fL (79-100) Mean Corpuscular Hemoglobin 27 pg (25-35) Mean Corpuscular Hemoglobin Concent 33 g/dL (31-37) Red Cell Distribution Width 13.7 % (11.5-14.5) Platelet Count 304 x10^3/uL (140-400) Neutrophils (%) (Auto) 67 % (31-73) Lymphocytes (%) (Auto) 26 % (24-48) Monocytes (%) (Auto) 7 % (0-9) Eosinophils (%) (Auto) 0 % (0-3) Basophils (%) (Auto) 0 % (0-3) Neutrophils # (Auto) 7.7 x10^3/uL (1.8-7.7) Lymphocytes # (Auto) 3.0 x10^3/uL (1.0-4.8) Monocytes # (Auto) 0.8 x10^3/uL (0.0-1.1) Eosinophils # (Auto) 0.0 x10^3/uL (0.0-0.7) Basophils # (Auto) 0.0 x10^3/uL (0.0-0.2) Sodium Level 136 mmol/L (136-145) Potassium Level 4.4 mmol/L (3.5-5.1) Chloride Level 102 mmol/L (98-107) Carbon Dioxide Level 26 mmol/L (21-32) Anion Gap 8 (6-14) Blood Urea Nitrogen 13 mg/dL (7-20) Creatinine 1.0 mg/dL (0.6-1.0) Estimated GFR (Cockcroft-Gault) 72.2 Glucose Level 133 mg/dL (70-99) Calcium Level 8.8 mg/dL (8.5-10.1) Total Bilirubin 0.3 mg/dL (0.2-1.0) Direct Bilirubin 0.1 mg/dL (0.0-0.2) Aspartate Amino Transf (AST/SGOT) 26 U/L (15-37) Alanine Aminotransferase (ALT/SGPT) 50 U/L (14-59) Alkaline Phosphatase 57 U/L (46-116) Total Protein 7.1 g/dL (6.4-8.2) Albumin 2.4 g/dL (3.4-5.0) Test 08/04/21 12:11 Glucose (Fingerstick) 144 mg/dL (70-99) Assessment and Plan Assessmemt and Plan Problems Medical Problems: (1) Hypoxia Status: Acute (2) Person under investigation for COVID-19 Status: Acute (3) Seizure Status: Acute Comment Review of Relevant I have reviewed the following items denice (where applicable) has been applied. Medications: Current Medications Medications (Trade) Dose Ordered Sig/Prateek Route PRN Reason Start Time Stop Time Status Last Admin Dose Admin Methylprednisolone (Medrol) 4 mg TIDPC PO 08/04/21 08:30 08/04/21 17:31 08/04/21 12:15 Justifications for Admission Other Justification JOSEY HOUSTON MD Aug 04, 2021 14:42
[2021-08-04] MEDS: ENOXAPARIN 40 MG/0.4 ML SYRINGE. SQ SCH (17:00)
[2021-08-04] MEDS: metFORMIN XR 500 MG TAB.ER.24H PO SCH (17:16)
[2021-08-04] MEDS ORDERED: methylPREDNISolone 4 MG TABLET. PO SCH (21:00)
[2021-08-05 03:03] VITALS: BP 115/70
[2021-08-05 07:55] VITALS: BP 121/89
[2021-08-05] MEDS: INSULIN LISPRO 300 UNITS/3 ML VIAL. SQ SCH ×3 (08:00→17:47)
[2021-08-05] MEDS: ZINC SULFATE 220 MG CAPSULE. PO SCH (09:37)
[2021-08-05] MEDS: LINAGLIPTIN 5 MG TABLET PO SCH (09:37)
[2021-08-05] MEDS: ASCORBIC ACID 500 MG TABLET PO SCH (09:37)
[2021-08-05] MEDS: ASPIRIN 325 MG TABLET PO SCH (09:37)
[2021-08-05] MEDS: DOXYCYCLINE HYCLATE 100 MG TABLET PO SCH ×2 (09:38→21:39)
[2021-08-05] MEDS: THIAMINE 100 MG TABLET. PO SCH (09:38)
[2021-08-05] MEDS: LACTOBACILLUS RHAMNOSUS GG 1 CAPSULE. PO SCH ×2 (09:38→21:39)
[2021-08-05] MEDS: levETIRAcetam 500 MG TABLET PO SCH ×2 (09:38→21:39)
[2021-08-05] MEDS: methylPREDNISolone 4 MG TABLET. PO SCH ×4 (09:38→21:39)
[2021-08-05] MEDS: METOCLOPRAMIDE 10 MG TABLET. PO SCH ×2 (09:38→17:45)
[2021-08-05] MEDS: LEVOTHYROXINE 50 MCG TABLET PO SCH (09:39)
[2021-08-05] MEDS: PANTOPRAZOLE 40 MG TABLET.DR. PO SCH (09:43)
[2021-08-05] MEDS ORDERED: METOPROLOL SUCC 24HR ER 25 MG TAB.ER.24H. PO ONE (09:45)
[2021-08-05 09:52] LABS: BASO % 0 % (0-3); EOS % 0 % (0-3); HEMATOCRIT 37.3 % (36.0-47.0); LYMPH # 2.6 x10^3/uL (1.0-4.8); LYMPH % 24 % (24-48); MEAN CORPUSCULAR HEMOGLOBIN 27 pg (25-35); MEAN CORPUSCULAR HGB CONC 32 g/dL (31-37); MEAN CORPUSCULAR VOLUME 84 fL (79-100); MONO # 0.7 x10^3/uL (0.0-1.1); MONO % 7 % (0-9); NEUT # 7.5 x10^3/uL (1.8-7.7); NEUT % 69 % (31-73); PLATELET COUNT 343 x10^3/uL (140-400); RED BLOOD COUNT 4.45 x10^6/uL (3.50-5.40); RED CELL DISTRIBUTION WIDTH 13.9 % (11.5-14.5); WHITE BLOOD COUNT 10.9 x10^3/uL (4.0-11.0)
[2021-08-05 10:10] LABS: CALCIUM 9.1 mg/dL (8.5-10.1); CREATININE 1.2 mg/dL (0.6-1.0); GFR 58.5; POTASSIUM 4.2 mmol/L (3.5-5.1)
[2021-08-05 11:55] VITALS: BP 105/72
[2021-08-05] MEDS: guaiFENesin DM 200MG/20MG 10 ML SYRUP PO PRN (12:33)
[2021-08-05] MEDS: ACETAMINOPHEN 500 MG TABLET PO PRN (12:34)
--- NOTE | 2021-08-05 13:22 | PDOC ---
[facility] PROGRESS NOTE Date of Service DOS: DATE: 08/05/21 TIME: 13:21 Chief Complaint Chief Complaint Acute respiratory failure with hypoxia COVID-19 Positive Seizures CARLEY Transaminitis Anemia Diarrhea Moderate protein calorie malnutrition - likely related to COVID 19 Developmental mental delay, MRDD with psychosis History of Present Illness History of Present Illness Ms Mena is a 46-year-old female w/ PMHX developmental mental delay, MRDD, seizure disorder, psychosis who arrives via EMS after having a witnessed seizure lasting approximately 2 minutes at her [facility]. Patient resides in a [facility] and has a known seizure disorder. Patient was unresponsive during the time the seizure occurred and upon calender supervisor arrival the seizure had resolved. Of note, the patient has been coughing and short of air during this time as well. Several residents of the patient's residence are being treated for Covid. Patient reports she has a sore throat when she coughs and had saturations in the mid 80s upon arrival. She notes that she has been having diarrhea for at least 6 days as well after a roommate coughed on her. Not vaccinated for COVID 19. WBC 7.1, Hb 11.7, platelets 206, NA 134, K4.6, BUN 15, CR 1.3, glucose 190, bilirubin 0.2, AST 45, ALT 48, alk phos 72, troponin 0, BNP 60, albumin 2.9. Rapid nucleic amplification test positive for COVID-19. Urine negative. 08/04: Patient seen and examined. Discussed with RN. doing well, plan DC tomorrw is now s/p Remdesivir. brething well, . concern for further seizure, risk, . 08/05/2021 No acute events overnight. Patient saturating 96% on room air. No concerns from nursing at this time. Anticipate discharge in the next 24 hours once patient is able to obtain medications at the pharmacy. Patient's chart, labs, images were reviewed and discussed with RN Vitals/I&O Vitals/I&O: Vital Signs Date Time Temp Pulse Resp B/P (MAP) Pulse Ox O2 Delivery O2 Flow Rate FiO2 08/05/21 11:55 98.3 89 18 105/72 (83) 96 Room Air 98.3 08/04/21 19:04 2.0 I & O 08/04/21 08/04/21 08/05/21 15:00 23:00 07:00 Intake Total 300 ml Output Total 100 ml Balance -100 ml 300 ml Physical Exam General: Alert, Oriented X3, Cooperative, No acute distress Heart: Regular rate Lungs: Clear, Other (No increased work of breathing on 2L nasal cannula) Abdomen: Normal bowel sounds, Soft, No tenderness, No hepatosplenomegaly, No masses Extremities: No clubbing, No cyanosis, No edema, Normal pulses, No tende rness/swelling Skin: No rashes, No breakdown, No significant lesion Labs Labs: Laboratory Tests Test 08/04/21 17:22 08/04/21 19:03 08/05/21 08:50 08/05/21 09:20 Glucose (Fingerstick) 169 mg/dL (70-99) 201 mg/dL (70-99) 148 mg/dL (70-99) White Blood Count 10.9 x10^3/uL (4.0-11.0) Red Blood Count 4.45 x10^6/uL (3.50-5.40) Hemoglobin 12.0 g/dL (12.0-15.5) Hematocrit 37.3 % (36.0-47.0) Mean Corpuscular Volume 84 fL (79-100) Mean Corpuscular Hemoglobin 27 pg (25-35) Mean Corpuscular Hemoglobin Concent 32 g/dL (31-37) Red Cell Distribution Width 13.9 % (11.5-14.5) Platelet Count 343 x10^3/uL (140-400) Neutrophils (%) (Auto) 69 % (31-73) Lymphocytes (%) (Auto) 24 % (24-48) Monocytes (%) (Auto) 7 % (0-9) Eosinophils (%) (Auto) 0 % (0-3) Basophils (%) (Auto) 0 % (0-3) Neutrophils # (Auto) 7.5 x10^3/uL (1.8-7.7) Lymphocytes # (Auto) 2.6 x10^3/uL (1.0-4.8) Monocytes # (Auto) 0.7 x10^3/uL (0.0-1.1) Eosinophils # (Auto) 0.0 x10^3/uL (0.0-0.7) Basophils # (Auto) 0.0 x10^3/uL (0.0-0.2) Sodium Level 140 mmol/L (136-145) Potassium Level 4.2 mmol/L (3.5-5.1) Chloride Level 105 mmol/L (98-107) Carbon Dioxide Level 26 mmol/L (21-32) Anion Gap 9 (6-14) Blood Urea Nitrogen 13 mg/dL (7-20) Creatinine 1.2 mg/dL (0.6-1.0) Estimated GFR (Cockcroft-Gault) 58.5 Glucose Level 172 mg/dL (70-99) Calcium Level 9.1 mg/dL (8.5-10.1) Test 08/05/21 12:07 Glucose (Fingerstick) 137 mg/dL (70-99) Assessment and Plan Assessmemt and Plan Problems Medical Problems: (1) Hypoxia Status: Acute (2) Person under investigation for COVID-19 Status: Acute (3) Seizure Status: Acute Comment Review of Relevant I have reviewed the following items denice (where applicable) has been applied. Medications: Current Medications Medications (Trade) Dose Ordered Sig/Prateek Route PRN Reason Start Time Stop Time Status Last Admin Dose Admin Methylprednisolone (Medrol) 8 mg QHS PO 08/04/21 21:00 08/04/21 21:01 DC 08/04/21 21:38 Methylprednisolone (Medrol) 4 mg QIDAFTMEAL PO 08/05/21 09:00 08/05/21 21:01 08/05/21 12:33 Metoprolol Succinate (Toprol Xl) 25 mg 1X ONCE PO 08/05/21 09:45 08/05/21 09:46 DC 08/05/21 09:44 Justifications for Admission Other Justification ARIE MCCULLOUGH MD Aug 05, 2021 13:22
[2021-08-05 15:10] VITALS: BP 110/54
[2021-08-05] MEDS: metFORMIN XR 500 MG TAB.ER.24H PO SCH (17:45)
[2021-08-05] MEDS: ENOXAPARIN 40 MG/0.4 ML SYRINGE. SQ SCH (17:45)
[2021-08-05 19:00] VITALS: BP 121/84
[2021-08-05] MEDS: PRAZOSIN 1 MG CAPSULE. PO SCH (21:38)
[2021-08-05] MEDS: traZODone 100 MG TABLET. PO SCH (21:39)
[2021-08-05 23:00] VITALS: BP 110/75
[2021-08-06 03:00] VITALS: BP 126/78
[2021-08-06] MEDS: LEVOTHYROXINE 50 MCG TABLET PO SCH (05:53)
[2021-08-06 07:00] VITALS: BP 115/84
--- NOTE | 2021-08-06 07:36 | DISCH ---
DISCHARGE INSTRUCTIONS Condition on Discharge Condition on Discharge: Stable Activity After Discharge Activity Instructions for Disc: Activity as tolerated Lifting Instructions after Dis: Do not lift >10 pounds Driving Instructions after Dis: Do not drive today Diet after Discharge Diet after Discharge: Cardiac Follow-Up Follow up with: PCP within 2 weeks of discharge ARIE MCCULLOUGH MD Aug 06, 2021 07:36
[2021-08-06] MEDS: INSULIN LISPRO 300 UNITS/3 ML VIAL. SQ SCH ×2 (08:00→11:50)
[2021-08-06] MEDS: METOCLOPRAMIDE 10 MG TABLET. PO SCH (10:42)
[2021-08-06] MEDS: PANTOPRAZOLE 40 MG TABLET.DR. PO SCH (10:42)
[2021-08-06] MEDS: ASPIRIN 325 MG TABLET PO SCH (10:43)
[2021-08-06] MEDS: levETIRAcetam 500 MG TABLET PO SCH (10:43)
[2021-08-06] MEDS: ASCORBIC ACID 500 MG TABLET PO SCH (10:43)
[2021-08-06] MEDS: LINAGLIPTIN 5 MG TABLET PO SCH (10:43)
[2021-08-06] MEDS: methylPREDNISolone 4 MG TABLET. PO SCH ×2 (10:43→14:30)
[2021-08-06] MEDS: THIAMINE 100 MG TABLET. PO SCH (10:43)
[2021-08-06] MEDS: LACTOBACILLUS RHAMNOSUS GG 1 CAPSULE. PO SCH (10:43)
[2021-08-06] MEDS: ZINC SULFATE 220 MG CAPSULE. PO SCH (10:44)
[2021-08-06] MEDS: METOPROLOL SUCC 24HR ER 25 MG TAB.ER.24H. PO SCH (10:44)
[2021-08-06] MEDS: DOXYCYCLINE HYCLATE 100 MG TABLET PO SCH (10:44)
[2021-08-06 11:00] VITALS: BP 114/77
--- NOTE | 2021-08-06 12:40 | NUR ---
SW following. Discussed with RN. Pt from [facility], discharge order for home with self care. COVID-19 positive. Awaiting transportation time. MEAGHAN will continue to follow. Addendum: 08/06/21 at 1521 by ANNEL HARDING [facility] will collect pt between [id number]. RN notified.
--- NOTE | 2021-08-06 15:37 | PDOC ---
PROGRESS NOTES Date of Service DATE: 08/06/21 TIME: 15:35 Assessment Problems Medical Problems: (1) Hypoxia Status: Acute (2) Person under investigation for COVID-19 Status: Acute (3) Seizure Status: Acute Epilepsy, breakthrough seizure possibly related to hypoxia from Covid or just nonspecific infection effects. 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 Covid positive, hypoxic Diabetes, hypothyroidism, hypertension, hyperlipidemia Plan Continue levetiracetam 500 mg twice daily Treat Covid and other medical issues Okay for discharge Follow-up with me as scheduled on 01/28/2022 at 9 AM Subjective No complaints, wants to go home Objective Vital Signs Date Time Temp Pulse Resp B/P (MAP) Pulse Ox O2 Delivery O2 Flow Rate FiO2 08/06/21 11:00 98.4 101 18 114/77 (89) 92 Room Air 98.4 Intake and Output 08/06/21 07:00 Intake Total 1800 ml Balance 1800 ml Intake Oral 1800 ml # Voids 3 # Bowel Movements 2 PHYSICAL EXAM Alert, knows that she is in the hospital, not the date or precise location PERRL. EOMI. CN: no focal findings. Muscle tone: spastic on the right. Muscle strength: 4/5 right hemiparesis DTR: 2+ Plantar reflex: Flexor Gait: not examined in bed. Sensory exam: Stocking loss. No cerebellar signs elicited. Review of Relevant I have reviewed the following items denice (where applicable) has been applied. Labs Laboratory Tests Test 08/04/21 17:22 08/04/21 19:03 08/05/21 08:50 08/05/21 09:20 Glucose (Fingerstick) 169 mg/dL (70-99) 201 mg/dL (70-99) 148 mg/dL (70-99) White Blood Count 10.9 x10^3/uL (4.0-11.0) Red Blood Count 4.45 x10^6/uL (3.50-5.40) Hemoglobin 12.0 g/dL (12.0-15.5) Hematocrit 37.3 % (36.0-47.0) Mean Corpuscular Volume 84 fL (79-100) Mean Corpuscular Hemoglobin 27 pg (25-35) Mean Corpuscular Hemoglobin Concent 32 g/dL (31-37) Red Cell Distribution Width 13.9 % (11.5-14.5) Platelet Count 343 x10^3/uL (140-400) Neutrophils (%) (Auto) 69 % (31-73) Lymphocytes (%) (Auto) 24 % (24-48) Monocytes (%) (Auto) 7 % (0-9) Eosinophils (%) (Auto) 0 % (0-3) Basophils (%) (Auto) 0 % (0-3) Neutrophils # (Auto) 7.5 x10^3/uL (1.8-7.7) Lymphocytes # (Auto) 2.6 x10^3/uL (1.0-4.8) Monocytes # (Auto) 0.7 x10^3/uL (0.0-1.1) Eosinophils # (Auto) 0.0 x10^3/uL (0.0-0.7) Basophils # (Auto) 0.0 x10^3/uL (0.0-0.2) Sodium Level 140 mmol/L (136-145) Potassium Level 4.2 mmol/L (3.5-5.1) Chloride Level 105 mmol/L (98-107) Carbon Dioxide Level 26 mmol/L (21-32) Anion Gap 9 (6-14) Blood Urea Nitrogen 13 mg/dL (7-20) Creatinine 1.2 mg/dL (0.6-1.0) Estimated GFR (Cockcroft-Gault) 58.5 Glucose Level 172 mg/dL (70-99) Calcium Level 9.1 mg/dL (8.5-10.1) Test 08/05/21 12:07 08/05/21 16:25 08/05/21 20:51 08/06/21 07:47 Glucose (Fingerstick) 137 mg/dL (70-99) 258 mg/dL (70-99) 124 mg/dL (70-99) 121 mg/dL (70-99) Test 08/06/21 11:49 Glucose (Fingerstick) 99 mg/dL (70-99) Laboratory Tests Test 08/05/21 16:25 08/05/21 20:51 08/06/21 07:47 08/06/21 11:49 Glucose (Fingerstick) 258 mg/dL (70-99) 124 mg/dL (70-99) 121 mg/dL (70-99) 99 mg/dL (70-99) Medications Current Medications Methylprednisolone Sodium Succinate (SOLU-Medrol 125MG VIAL) 125 mg 1X ONCE IV Last administered on 07/30/21at 10:20; Start 07/30/21 at 09:30; Stop 07/30/21 at 09:33; Status DC Ondansetron HCl (Zofran) 4 mg PRN Q8HRS PRN IVP NAUSEA/VOMITING; Start 07/30/21 at 10:45; Stop 07/30/21 at 17:03; Status DC Acetaminophen (Tylenol) 650 mg PRN Q4HRS PRN PO FEVER > 100.3'F Last administered on 07/30/21at 16:28; Start 07/30/21 at 10:45; Stop 07/30/21 at 17:03; Status DC Insulin Human Lispro (HumaLOG) 0-7 UNITS TIDWMEALS SQ Last administered on 08/05/21at 17:47; Start 07/30/21 at 17:00 Dextrose (Dextrose 50%-Water Syringe) 12.5 gm PRN Q15MIN PRN IV SEE COMMENTS; Start 07/30/21 at 12:15 Loperamide HCl (Imodium) 2 mg PRN Q15MIN PRN PO DIARRHEA; Start 07/30/21 at 12:15 Guaifenesin (Robitussin Dm) 10 ml PRN Q6HRS PRN PO COUGH Last administered on 08/05/21at 12:33; Start 07/30/21 at 12:15 Sodium Chloride 1,000 ml @ 125 mls/hr 1X ONCE IV Last administered on 07/30/21at 12:15; Start 07/30/21 at 12:15; Stop 07/30/21 at 20:14; Status DC Remdesivir 200 mg/ Sodium Chloride 210 ml @ 210 mls/hr 1X ONCE IV Last administered on 07/30/21at 18:25; Start 07/30/21 at 18:00; Stop 07/30/21 at 18:59; Status DC Remdesivir 100 mg/ Sodium Chloride 230 ml @ 460 mls/hr Q24H IV Last administered on 08/01/21at 18:17; Start 07/31/21 at 18:00; Stop 08/02/21 at 10:57; Status DC Ondansetron HCl (Zofran) 4 mg PRN Q4HRS PRN IVP NAUSEA/VOMITING Last administered on 08/01/21at 11:00; Start 07/30/21 at 17:00 Acetaminophen (Tylenol) 650 mg PRN Q6HRS PRN PO FEVER > 100.3'F Last administered on 07/31/21at 09:09; Start 07/30/21 at 17:00 Olanzapine (ZyPREXA ZYDIS) 5 mg PRN BID PRN PO ANXIETY / AGITATION Last administered on 07/31/21 20:44; Start 07/30/21 at 17:00 Zinc Sulfate (Orazinc) 220 mg DAILY PO Last administered on 08/06/21 10:44; Start 07/31/21 at 09:00 Thiamine Mononitrate (Vitamin B-1) 100 mg DAILY PO Last administered on 08/06/21 10:43; Start 07/31/21 at 09:00 Ascorbic Acid (Vitamin C) 500 mg DAILY PO Last administered on 08/06/21at 10:43; Start 07/31/21 at 09:00 Dexamethasone Sodium Phosphate (Decadron) 6 mg DAILY IVP Last administered on 08/02/21 10:16; Start 07/31/21 at 09:00; Stop 08/02/21 at 10:57; Status DC Enoxaparin Sodium (Lovenox 40mg Syringe) 40 mg Q24H SQ Last administered on 08/05/21at 17:45; Start 07/30/21 at 17:00 Levetiracetam (Keppra) 500 mg BID PO Last administered on 08/06/21 10:43; Start 07/30/21 at 21:00 Levothyroxine Sodium (Synthroid) 50 mcg DAILY07 PO Last administered on 08/06/21at 05:53; Start 07/31/21 at 07:00 Trazodone HCl (Desyrel) 100 mg HS PO Last administered on 08/05/21at 21:39; Start 07/30/21 at 21:00 Pantoprazole Sodium (Protonix) 40 mg DAILYAC PO Last administered on 08/06/21at 10:42; Start 07/31/21 at 07:30 Linagliptin (Tradjenta) 5 mg DAILY PO Last administered on 08/06/21at 10:43; Start 07/31/21 at 09:00 Acetaminophen (Tylenol) 1,000 mg PRN TID PRN PO HEADACHE Last administered on 08/05/21at 12:34; Start 07/30/21 at 20:15 Throat Lozenges (Cepacol Sore Throat Lozenge) 1 jesi PRN Q2HRS PRN PO SORE THROAT; Start 07/30/21 at 20:00 Diphenhydramine HCl (Benadryl) 25 mg PRN Q6HRS PRN PO ITCHING; Start 07/30/21 at 20:00 Ibuprofen (Motrin) 400 mg PRN Q6HRS PRN PO INFLAMMATION; Start 07/30/21 at 20:00 Simethicone (Gas-X) 80 mg PRN QID PRN PO GAS / BLOATING; Start 07/30/21 at 20:00 Metformin HCl (Glucophage Xr) 1,000 mg QEVNG PO Last administered on 08/05/21at 17:45; Start 07/30/21 at 21:00 Metoclopramide HCl (Reglan) 10 mg BIDAC PO Last administered on 08/06/21at 10:42; Start 07/31/21 at 07:30 Metoprolol Succinate (Toprol Xl) 25 mg DAILY PO Last administered on 08/06/21at 10:44; Start 07/31/21 at 09:00 Pantoprazole Sodium (Protonix) 40 mg DAILYAC PO ; Start 07/31/21 at 07:30; Stop 07/30/21 at 20:11; Status DC Polyethylene Glycol (miraLAX PACKET) 17 gm PRN DAILY PRN PO CONSTIPATION; Start 07/30/21 at 20:00 Prazosin HCl (Minipress) 2 mg HS PO Last administered on 08/05/21at 21:38; Start 07/30/21 at 21:00 Aspirin (Brian Aspirin) 325 mg DAILYWBKFT PO Last administered on 08/06/21at 10:43; Start 08/02/21 at 08:00 Doxycycline Hyclate 100 mg/ Dextrose 100 ml @ 50 mls/hr BID IV Last administered on 08/02/21at 10:17; Start 08/01/21 at 21:00; Stop 08/02/21 at 10:57; Status DC Doxycycline Hyclate (Vibra-Tab) 100 mg BID PO Last administered on 08/06/21at 10:44; Start 08/02/21 at 21:00 Methylprednisolone (Medrol) 8 mg BID PO Last administered on 08/03/21at 09:41; Start 08/03/21 at 09:00; Stop 08/03/21 at 21:01; Status DC Methylprednisolone (Medrol) 4 mg BIDPCLD PO ; Start 08/02/21 at 12:30; Stop 08/02/21 at 17:31; Status UNV Methylprednisolone (Medrol) 4 mg TIDPC PO Last administered on 08/04/21at 17:16; Start 08/04/21 at 08:30; Stop 08/04/21 at 17:31; Status DC Methylprednisolone (Medrol) 8 mg QHS PO Last administered on 08/04/21at 21:38; Start 08/04/21 at 21:00; Stop 08/04/21 at 21:01; Status DC Methylprednisolone (Medrol) 4 mg QIDAFTMEAL PO Last administered on 08/05/21at 21:39; Start 08/05/21 at 09:00; Stop 08/05/21 at 21:01; Status DC Methylprednisolone (Medrol) 4 mg TID PO Last administered on 08/06/21at 14:30; Start 08/06/21 at 09:00; Stop 08/06/21 at 21:01 Methylprednisolone (Medrol) 4 mg BID PO ; Start 08/07/21 at 09:00; Stop 08/07/21 at 21:01 Methylprednisolone (Medrol) 4 mg DAILY PO ; Start 08/08/21 at 09:00; Stop 08/08/21 at 09:01 Methylprednisolone (Medrol) 4 mg BIDPCLD PO Last administered on 08/03/21at 17:32; Start 08/03/21 at 12:30; Stop 08/03/21 at 17:31; Status DC Lactobacillus Rhamnosus (Culturelle) 1 cap BID PO Last administered on 08/06/21at 10:43; Start 08/02/21 at 13:00 Metoprolol Succinate (Toprol Xl) 25 mg 1X ONCE PO Last administered on 08/05/21at 09:44; Start 08/05/21 at 09:45; Stop 08/05/21 at 09:46; Status DC Active Scripts Active Keppra (Levetiracetam) 500 Mg Tablet 500 Mg PO BID 30 Days Reported Loratadine 10 Mg Tablet 10 Mg PO Januvia (Sitagliptin Phosphate) 100 Mg Tablet 100 Mg PO DAILY Lisinopril 5 Mg Tablet 5 Mg PO DAILY Trazodone Hcl 100 Mg Tablet 100 Mg PO HS Toviaz (Fesoterodine Fumarate) 4 Mg Tab.er.24h 4 Mg PO DAILY Ranitidine Hcl 150 Mg Tablet 150 Mg PO DAILY Omeprazole 40 Mg Capsule.dr 40 Mg PO DAILY Metoclopramide Hcl 5 Mg/5 Ml Solution 5 Mg PO TID Metformin Hcl Er (Metformin Hcl) 500 Mg Tab.er.24 500 Mg PO DAILYBFRSUP Loxapine (Loxapine Succinate) 10 Mg Capsule 10 Mg PO BID Levothyroxine Sodium 50 Mcg Tablet 50 Mcg PO DAILY Benztropine Mesylate 0.5 Mg Tablet 0.5 Mg PO BID Vitals/I & O Vital Sign - Last 24 Hours 08/05/21 08/05/21 08/05/21 08/05/21 19:00 19:30 21:38 23:00 Temp 99.4 98.4 99.4 98.4 Pulse 94 94 101 Resp 20 20 B/P (MAP) 121/84 (96) 121/84 110/75 (87) Pulse Ox 95 96 O2 Delivery Room Air Room Air Room Air 08/06/21 08/06/21 08/06/21 08/06/21 03:00 07:00 08:30 10:44 Temp 98.4 99.0 98.4 99.0 Pulse 95 136 136 Resp 20 20 B/P (MAP) 126/78 (94) 115/84 (94) 115/84 Pulse Ox 97 92 O2 Delivery Room Air Room Air Room Air 08/06/21 11:00 Temp 98.4 98.4 Pulse 101 Resp 18 B/P (MAP) 114/77 (89) Pulse Ox 92 O2 Delivery Room Air Intake and Output 08/05/21 08/05/21 08/06/21 15:00 23:00 07:00 Intake Total 600 ml 600 ml 600 ml Balance 600 ml 600 ml 600 ml Justicifation of Admission Dx: Justifications for Admission: Justification of Admission Dx: N/A SAM ISABEL MD Aug 06, 2021 15:37
--- NOTE | 2021-08-06 16:46 | NUR ---
Pt left unit at 1640 by ambulation via transportation. Pt's VSS. Discharge paperwork, including follow-up appt discussed with and given to nurse Cary with [facility]. ORDAZ instructions included. Addendum: 08/06/21 at 1651 by ALEX SALAZAR RN Add to previous: Script for medrol dose pack given to nurse Cary.
[2021-08-07] MEDS ORDERED: methylPREDNISolone 4 MG TABLET. PO SCH (09:00)
[2021-08-08] MEDS ORDERED: methylPREDNISolone 4 MG TABLET. PO SCH (09:00)
--- NOTE | 2021-08-17 16:10 | PDOC3 ---
[facility]-Discharge Summary Date of Admission: Date of Admission: Jul 30, 2021 Date of Discharge: Date of Discharge: Aug 06, 2021 Discharge Diagnosis: Discharge Diagnosis: Acute respiratory failure with hypoxia COVID-19 Positive Seizures CARLEY Transaminitis Anemia Diarrhea Moderate protein calorie malnutrition - likely related to COVID 19 Developmental mental delay, MRDD with psychosis Consults: Consults: Neuro recs: Plan Continue levetiracetam 500 mg twice daily Treat Covid and other medical issues Okay for discharge Follow-up with me as scheduled on 01/28/2022 at 9 AM Hospital Course: Hospital Course: Ms Mena is a 46-year-old female w/ PMHX developmental mental delay, MRDD, seizure disorder, psychosis who arrives via EMS after having a witnessed seizure lasting [facility] 2 minutes at her [facility]. [facility] a [facility] and has a known seizure disorder. 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 Of note, the patient has been coughing and short of air during this time as well. Several residents of the patient's residence are being treated for Covid. Patient reports she has a sore throat when she coughs and had saturations in the mid 80s upon arrival. She notes that she has been having diarrhea for at least 6 days as well after a roommate coughed on her. Not vaccinated for COVID 19. WBC 7.1, Hb 11.7, platelets 206, NA 134, K4.6, BUN 15, CR 1.3, glucose 190, bilirubin 0.2, AST 45, ALT 48, alk phos 72, troponin 0, BNP 60, albumin 2.9. Rapid nucleic amplification test positive for COVID-19. Urine negative. 08/04: Patient seen and examined. Discussed with RN. doing well, plan DC tomorrw is now s/p Remdesivir. brething well, . concern for further seizure, risk, . 08/05/2021 No acute events overnight. Patient saturating 96% on room air. No concerns from nursing at this time. Anticipate discharge in the next 24 hours once patient is able to obtain medications at the pharmacy. Patient's chart, labs, images were reviewed and discussed with RN By day of discharge, pt was clinically stable and ready for discharge. Rest of hospital course was uneventful Disposition: Disposition/Orders: D/C to Another Facility Activity: Activity: Resume previous activity Diet: Diet: Cardiac Medications: Home Meds Active Scripts Levetiracetam (KEPPRA) 500 Mg Tablet, 500 MG PO BID for 30 Days, #60 TAB Prov:YUSRA ACEVEDO MD 09/12/18 Reported Medications Loratadine (LORATADINE) 10 Mg Tablet, 10 MG PO, TAB 07/04/19 Sitagliptin Phosphate (JANUVIA) 100 Mg Tablet, 100 MG PO DAILY, TAB 07/04/19 Lisinopril (LISINOPRIL) 5 Mg Tablet, 5 MG PO DAILY for FOR HYPERTENSION, #30 TAB 0 Refills 07/04/19 Trazodone Hcl (TRAZODONE HCL) 100 Mg Tablet, 100 MG PO HS 03/16/14 Fesoterodine Fumarate (TOVIAZ) 4 Mg Tab.er.24h, 4 MG PO DAILY 03/16/14 Ranitidine Hcl (RANITIDINE HCL) 150 Mg Tablet, 150 MG PO DAILY 03/16/14 Omeprazole (OMEPRAZOLE) 40 Mg Capsule.dr, 40 MG PO DAILY 03/16/14 Metoclopramide Hcl (METOCLOPRAMIDE HCL) 5 Mg/5 Ml Solution, 5 MG PO TID 03/16/14 Metformin Hcl (METFORMIN HCL ER) 500 Mg Tab.er.24, 500 MG PO DAILYBFRSUP 03/16/14 Loxapine Succinate (LOXAPINE) 10 Mg Capsule, 10 MG PO BID 03/16/14 Levothyroxine Sodium (LEVOTHYROXINE SODIUM) 50 Mcg Tablet, 50 MCG PO DAILY 03/16/14 Benztropine Mesylate (BENZTROPINE MESYLATE) 0.5 Mg Tablet, 0.5 MG PO BID 03/16/14 Scheduled Benztropine Mesylate (Benztropine Mesylate), 0.5 MG PO BID, (Reported) Fesoterodine Fumarate (Toviaz), 4 MG PO DAILY, (Reported) Levetiracetam (Keppra), 500 MG PO BID Levothyroxine Sodium (Levothyroxine Sodium), 50 MCG PO DAILY, (Reported) Lisinopril (Lisinopril), 5 MG PO DAILY, (Reported) Loxapine Succinate (Loxapine), 10 MG PO BID, (Reported) Metformin Hcl (Metformin Hcl Er), 500 MG PO DAILYBFRSUP, (Reported) Metoclopramide Hcl (Metoclopramide Hcl), 5 MG PO TID, (Reported) Omeprazole (Omeprazole), 40 MG PO DAILY, (Reported) Ranitidine Hcl (Ranitidine Hcl), 150 MG PO DAILY, (Reported) Sitagliptin Phosphate (Januvia), 100 MG PO DAILY, (Reported) Trazodone Hcl (Trazodone Hcl), 100 MG PO HS, (Reported) Miscellaneous Medications Loratadine (Loratadine), 10 MG PO, (Reported) Total Time: Total Time: Total time spent was 35 minutes in preparing scripts, discharge planning with SW and RN, and preparing this discharge summary. Patient seen and examined on day of discharge. Justicifation of Admission Dx: Justifications for Admission: Justification of Admission Dx: N/A ARIE MCCULLOUGH MD Aug 17, 2021 16:10
== END 2021-08-06 16:49 | disposition home or self-care (01) | DRG 177 ==
LOC: ER 08:44 → 5 SOUTH 10:10 → OBSVTOIN 16:47
PROVIDERS: ADMIT Internal Medicine; ATTEND Internal Medicine
PROC: XW033E5 Introduction of Remdesivir Anti-infective into Peripheral Vein, Percutaneous Approach, New Technology Group 5 (ICD-10-PCS; principal; 2021-07-30)
DX: U07.1 COVID-19 (principal); J96.01 Acute respiratory failure with hypoxia; E44.0 Moderate protein-calorie malnutrition; N17.9 Acute kidney failure, unspecified; G40.909 Epilepsy, unspecified, not intractable, without status epilepticus; D64.9 Anemia, unspecified; E03.9 Hypothyroidism, unspecified; E11.65 Type 2 diabetes mellitus with hyperglycemia; E78.5 Hyperlipidemia, unspecified; F03.90 Unspecified dementia, unspecified severity, without behavioral disturbance, psychotic disturbance, mood disturbance, and anxiety; F20.9 Schizophrenia, unspecified; F31.9 Bipolar disorder, unspecified; F60.3 Borderline personality disorder; G80.9 Cerebral palsy, unspecified; I10 Essential (primary) hypertension; J45.909 Unspecified asthma, uncomplicated; Z82.49 Family history of ischemic heart disease and other diseases of the circulatory system; F41.9 Anxiety disorder, unspecified; G47.09 Other insomnia; K21.9 Gastro-esophageal reflux disease without esophagitis; R74.01 Elevation of levels of liver transaminase levels
CPT/HCPCS: 36415; 71045; 80048; 80053; 80076; 81025; 82962; 83880; 84484; 85025; 93005; 96374; G0378; G0379; J1100; J1650; J1815; J2405; J2930; J3490; J7030; J7050; J7060; J7509; U0003; U0005; 99285-25

== ENCOUNTER → 2021-10-31 | Outpatient (CLI) | payer OTHER ==
[~2021-10-31] MED LIST changes: -LISI-517 PO; +LISI5TAB15 PO
--- NOTE | 2021-10-31 11:00 | KCIC ---
Left breast diagnostic digital mammograms with 3-D tomosynthesis: Reason for examination: Painful sensation behind left nipple. Comparison is made to previous study dated 03/11/2021. Left breast mammograms in CC and oblique projections were obtained with 2-D imaging and 3-D tomosynth esis imaging on a Siemens Inspiration unit and reviewed on the workstation. Interpretation was made w ith the benefit of CAD. The skin and nipples show no abnormalities. No abnormal axillary lymph nodes are seen. The breast par enchyma is heterogeneously dense. (Breast density: Category C.) There continues to be some subtle nod ularity in the 12:00 position approximately 5 cm from the nipple. Further evaluation with ultrasound will follow. There are no other dominant masses, suspicious calcifications or architectural distortio n. Impression: Nodularity at the 12:00 position anteriorly. Ultrasound to follow. Your patient's mammogram demonstrates that she has dense breast tissue (breast density category C or D), which could hide abnormalities, and if she has other risk factors for breast cancer that have bee n identified, she might benefit from supplemental screening tests that may be suggested by you as her ordering physician. Dense breast tissue, in and of itself, is a relatively common condition. Therefo re, this information is not provided to cause undue concern, but rather to raise your awareness and t o promote discussion with your patient regarding the presence of other risk factors, in addition to d ense breast tissue. Your patient's mammography results will be sent to her. BI-RAD Category 0: Incomplete. Needs additional imaging evaluation. Left breast ultrasound: Comparison is made to previous study dated 04/10/2021. Ultrasound examination of the left breast and axilla was performed. There appears to be some mild ductal ectasia. There are no discrete cystic or solid nodules are ident ified. No abnormal appearing lymph nodes are seen in the left axilla. IMPRESSION: No suspicious abnormalities evident in the left breast. Recommend bilateral mammograms and left breas t ultrasound in 6 months. BI-RADS Category 3: Probably Benign. "Our facility is accredited by the [employer] Mammography Program." This patient's information has been entered into a reminder system for the patient to be notified wit h the results of her examination and a target date for the next mammogram. Electronically signed by: Stephanie Adan MD (10/31/2021 10:58 AM) [id number]
== END ==
LOC: KCIC MAMMO 09:52
PROVIDERS: ATTEND Family Medicine
DX: R92.8 Other abnormal and inconclusive findings on diagnostic imaging of breast (principal)
CPT/HCPCS: 76641; 77065; G0279; 77061

== ENCOUNTER → 2021-12-06 | Outpatient (CLI) | payer OTHER ==
--- NOTE | 2021-12-06 12:09 | RAD ---
2 views of the abdomen without comparison for abdominal distention, right-sided abdominal pain. FINDINGS: There is been a prior cholecystectomy. There is scattered abdominal bowel gas in a nonobstr uctive pattern. A large amount of stool seen throughout the colon. Mild curvature of the spine is non specific. Some degenerative changes at L5-S1. No radiopaque calcifications. Impression: 1. Nonobstructive nonspecific bowel gas pattern with a large amount of stool. Electronically signed by: Roosevelt Drummond MD (12/06/2021 12:07 PM) [id number]
== END ==
LOC: RAD 07:58
PROVIDERS: ATTEND Nurse Practitioner
DX: R14.0 Abdominal distension (gaseous) (principal); K56.41 Fecal impaction; M47.817 Spondylosis without myelopathy or radiculopathy, lumbosacral region; M43.9 Deforming dorsopathy, unspecified
CPT/HCPCS: 74021